=== PATIENT | female | born 1940 | race Caucasian/White ===

== ENCOUNTER 2016-04-20 08:06 | Inpatient (IN) | payer BC, OTHER ==
[2016-04-18 15:01] VITALS: BMI 29.0
[2016-04-20] VITALS (10 sets, daily range): BP systolic 111–141; BP diastolic 66–87; PULSE 52–87; TEMP 36.5–36.9; O2SAT 96–100; Ht 154.9 cm; Wt 71.8 kg
[~2016-04-20] VITALS: Ht 154.9 cm; Wt 71.8 kg
[~2016-04-20 08:06] MED LIST: AMLO5CAP2 PO; ASPCH81X PO; CETI10TA10 PO; CHOL1000 PO; CLINDAMYCIN 600 MG/54 ML D5W IV SCH; FERR50TA3 PO; GENTAMICIN INJ 80 MG in DEXTROSE 5% 100ML 100 ML IV SCH; HEPARIN SOD 5000 UNIT/0.5 ML CARP SQ SCH; HYDR25TA4 PO; LACTATED RINGER'S 1000ML 1,000 ML IV SCH; PRLSR20 PO; VITACAP26 PO; VITAMIN B12 SL
[2016-04-20] MEDS ORDERED: FENTANYL CITRATE INJ 50 MCG/1 ML 2 ML VIAL ONE ×3 (09:26→13:28)
[2016-04-20] MEDS ORDERED: MIDAZOLAM HCL 1 MG/ML 2ML VIAL ONE (09:26)
--- NOTE | 2016-04-20 10:13 | History & Physical Bridge Note ---
H&P Re-Evaluation Bridge Note: I have examined the patient, reviewed the History & Physical and in the interval since the performance of the History & Physical I have noted the following changes of clinical significance: No changes noted...family at bedside. rediscussed risks/options. questions answered. ok to proceed.
[2016-04-20] MEDS ORDERED: LIDOCAINE HCL 2% 2 ML VIAL (20MG/ML) ONE (11:05)
[2016-04-20] MEDS ORDERED: GLYCOPYRROLATE INJ 0.2 MG/ML VIAL ONE (11:05)
[2016-04-20] MEDS ORDERED: PROPOFOL IV EMULSION 10 MG/ML 20 ML VIAL IV ONE (11:05)
[2016-04-20] MEDS ORDERED: DEXAMETHASONE SOD INJ 4 MG/ML VIAL ONE (11:05)
[2016-04-20] MEDS ORDERED: NEOSTIGMINE METHYLSULFATE 5 MG/5 ML SYR ONE (11:05)
[2016-04-20] MEDS ORDERED: ROCURONIUM BROMIDE 10 MG/ML 5 ML VIAL ONE (11:05)
[2016-04-20] MEDS ORDERED: PHENYLEPHRINE 100MCG/ML 5ML SYR ONE (11:05)
[2016-04-20] MEDS ORDERED: ONDANSETRON INJ 2 MG/ML 2 ML VIAL ONE (11:05)
[2016-04-20] MEDS ORDERED: MoRPHine SULFATE PF 1 MG/ML 10 ML AMP/VIAL ONE (11:09)
[2016-04-20] MEDS ORDERED: MoRPHine SULFATE 4 MG/ML 1 ML CARP\\VIAL IV PRN (13:00)
[2016-04-20] MEDS ORDERED: OXYCODONE/ACETAMINOPHEN 5-325 TAB PO PRN (13:00)
[2016-04-20] MEDS ORDERED: ONDANSETRON INJ 2 MG/ML 2 ML VIAL IV PRN ×2 (13:00→13:30)
[2016-04-20] MEDS ORDERED: BUPIVACAINE/EPINEPHRINE 0.5% MPF 1:200,000 30 ML VIAL INJ ONE (13:03)
--- NOTE | 2016-04-20 13:13 | [facility] Operative Report ---
Operative Report Operative Date Apr 20, 2016. Pre-Operative Diagnosis Colon Adenocarcinoma Post-Operative Diagnosis same Procedure(s) Performed laparoscopic right hemicolectomy Surgeon Dr. Dony Hernandez Radiographer Angiogram Surgeon(s) Basilio Zhang PA-C and Dr. Skip Benítez Estimated Blood Loss 25 ml Findings normal anatomy. no evidence of metastatic disease. Specimens A. Terminal ilium, cecum, right colon Anesthesia GET Complication(s) None Disposition Recovery Room / PACU I attest to the content of the Intraoperative Record and any orders documented therein. Any exceptions are noted below.
[2016-04-20] MEDS ORDERED: FENTANYL CITRATE INJ 50 MCG/1 ML 2 ML VIAL IV PRN (13:30)
[2016-04-20] MEDS ORDERED: ATROPINE SULFATE 0.1 MG/ML 5ML SYR IV PRN (13:30)
[2016-04-20] MEDS ORDERED: MoRPHine SULFATE 10 MG/ML CARP/VIAL IV PRN (13:30)
[2016-04-20] MEDS ORDERED: EpHEDrine SULFATE INJ 50 MG/ML AMP IV PRN (13:30)
--- NOTE | 2016-04-20 13:52 | OPERATIVE REPORT ---
DATE OF OPERATION: 04/20/2016 PREOPERATIVE DIAGNOSIS: Adenocarcinoma of the cecum. POSTOPERATIVE DIAGNOSIS: Same with intra-abdominal adhesions. PROCEDURE: Laparoscopic right hemicolectomy and enterolysis. SURGEON: Dr. Hernandez. ASSISTANT PROFESSOR OF BUSINESS: Saulo Zhang PA-C. ESTIMATED BLOOD LOSS: 20 mL. COMPLICATIONS: No immediate. ANESTHESIA: General. The patient tolerated the procedure well. OPERATION AND FINDINGS: OPERATIVE NOTE: After informed consent was obtained, the patient was brought to the operating suite, placed in supine position. After successful intubation a Hughes catheter was placed. The abdomen was then sterilely prepped and draped in usual fashion. An infraumbilical incision was made with 11 blade scalpel and carried down through the soft tissue using electrocautery. The anterior rectus fascia was opened using electrocautery and two #0 Vicryl stay sutures were placed. Peritoneum was elevated with hemostats and incised under direct vision using a Metzenbaum scissor. A finger sweep was performed. A 12 mm trocar was inserted and the balloon cuff was inflated. We then inflated the abdomen to 18 mmHg. Laparoscope was inserted and the abdomen was examined 360 degrees. There was no evidence of any metastatic disease, hernias or other gross abnormality. We did see an abnormality on the cecum consistent with the known tumor. We then placed a suprapubic 5 mm port, a left lower quadrant 12 mm port. The patient was placed in reverse Trendelenburg position and airplaned to the left. There were some adhesions from her prior appendectomy to the abdominal wall. We took these down using the Harmonic scalpel. Once we had the adhesions down, we then began mobilizing the right colon along the avascular plane laterally. To make this easier I went ahead and transected the terminal ileum about 4 inches proximal to the cecum and I did this using a CHEY hdz cartridge. We then continued to use traction, counter traction, blunt dissection as well as small amounts of harmonic to come up along the lateral avascular plane. We continued up and around the hepatic flexure and whole way to the mid transverse colon. Once we had this fully mobilized, we then picked a spot along the right colon just proximal to the hepatic flexure. We made a window in the mesentery and then used the CHEY purple cartridge stapler to transect the distal end of the colon. After we did this, we then took down the mesocolon staying low to the base using the Harmonic scalpel. We had to do a little bit of further mobilizing of the transverse colon and hepatic flexure. Once we did this, we estimated a good site to deliver the colon so we could do an extracorporal anastomosis. We did place a 5 mm trocar to help grasp the specimen. We then extended the incision using a scalpel as well as electrocautery and opened up the fascia. We then pulled out the terminal ileum, cecum and portion of the right colon and passed it off to be sent to pathology. We then used towel clips to close the skin and reinsufflated the abdomen. I manipulate the small bowel as well as the proximal colon so we made sure that the mesentery were not twisted and that they were perfectly aligned. Once I did this, I then delivered the small bowel staple line as well as the colon staple line out of this right upper quadrant incision. We made a small enterotomy in each and performed a side to side anastomosis using a CHEY hdz cartridge stapler. We then used a TA 60 device to close the common enterotomy. 3-0 silk was used to oversew the staple lines as well as to place a crotch stitch. We then put the anastomosis which was nice and pink and viable with no evidence of leakage. We put this back into the abdomen. I then closed the fascial defect using 0 Vicryl in a running fashion. We then reinsufflated the abdomen. I looked around and the anastomosis was viable. There was no bleeding. I did use a 2-0 Vicryl with laparoscopic suturing technique to close the mesenteric defect. Final look around the abdomen showed no other gross abnormalities. Again, there was adequate hemostasis. I felt no need to leave a drain. We removed all the trocars and desufflated the abdomen. The fascia of the camera port was closed using 0 Vicryl in a [id number] fashion. All the wounds were irrigated and closed using 4-0 Monocryl. Marcaine was injected around them for postoperative analgesia and Op-Sites were used as dressings. The patient was awakened, extubated, and transferred to recovery in stable condition. I attest to the content of the Intraoperative Record and any orders documented therein. Any exceptio ns are noted below.
--- NOTE | 2016-04-20 14:00 | Anesthesiology Progress Note ---
Anesthesia Post Op Note Date & Time Apr 20, 2016 at 13:59 Vital Signs Pain Intensity: 5.0 Vital Signs Past 12 Hours Date Time Temp Pulse Resp B/P Pulse Ox O2 Delivery O2 Flow Rate FiO2 04/20/16 13:51 36.4 04/20/16 13:50 52 16 04/20/16 13:50 52 16 99 04/20/16 13:49 124/52 04/20/16 13:45 51 16 04/20/16 13:45 51 16 98 04/20/16 13:44 130/52 04/20/16 13:40 51 16 04/20/16 13:40 51 16 98 04/20/16 13:39 130/55 04/20/16 13:37 52 16 97 04/20/16 13:37 52 16 04/20/16 13:34 129/57 04/20/16 13:32 51 16 97 04/20/16 13:32 51 16 04/20/16 13:29 142/63 04/20/16 13:27 56 16 99 04/20/16 13:27 56 16 04/20/16 13:24 155/92 04/20/16 13:22 57 22 04/20/16 13:22 58 22 100 04/20/16 13:19 147/65 04/20/16 13:17 57 12 100 04/20/16 13:17 57 12 04/20/16 13:14 142/56 04/20/16 13:12 62 16 100 04/20/16 13:12 61 16 04/20/16 13:11 61 12 100 04/20/16 13:11 61 12 04/20/16 13:06 71 12 100 04/20/16 13:06 70 12 04/20/16 13:04 144/61 04/20/16 13:01 36.7 75 15 149/61 100 Mask 10 04/20/16 13:01 72 12 04/20/16 13:01 72 12 100 04/20/16 08:32 36.7 85 18 141/68 99 Room Air Notes Mental Status: alert / awake / arousable, participated in evaluation Pt Amnestic to Procedure: Yes Nausea / Vomiting: adequately controlled Pain: adequately controlled Airway Patency, RR, SpO2: stable & adequate BP & HR: stable & adequate Hydration State: stable & adequate Anesthetic Complications: no major complications apparent
[2016-04-20] MEDS ORDERED: MoRPHine SULFATE 2 MG/ML CARP IV PRN (16:15)
[2016-04-20] MEDS: LACTATED RINGER'S 1000ML 1,000 ML IV SCH ×2 (16:32→23:21)
--- NOTE | 2016-04-20 17:13 | CONSULTATION REPORT ---
DATE OF CONSULTATION: 04/20/2016 REASON FOR CONSULTATION: Medical management of hypertension in the perioperative period. HISTORY OF PRESENT ILLNESS: Ms. Lin is a 76-year-old female who had a screening colonoscopy for anemia 03/28/2016. At that time, she had a circumferential cecal mass which was found to be low grade adenocarcinoma. The patient was taken to the operating room today for resection and reanastomosis. She is doing well postoperatively, although having absent bowel sounds. PAST MEDICAL HISTORY: Hypertension, GERD, vitamin D deficiency, anemia and a previous appendectomy. MEDICATIONS: Aspirin 81 a day, vitamin D 1000 a day, hydrochlorothiazide 25 a day, iron 325 a day, Prilosec 20 a day, Lotrel 5/20 once a day, and Zyrtec 10 a day. MEDICATIONS IN HOSPITAL: Really have been pared down to the Lotrel and the Zyrtec. Her other medications are held. These will be given with a small sip of water. SOCIAL HISTORY: Does not smoke or drink, never has. FAMILY HISTORY: Positive for heart disease and hypertension. REVIEW OF SYSTEMS: Currently, she does have some abdominal pain. She is mildly nauseated. She feels bloated and distended. Otherwise, 10 systems were reviewed and are negative. PHYSICAL EXAMINATION: VITAL SIGNS: She is afebrile at 36.6, pulse 57, respiration rate 16, BP 123/66, O2 sat 100 on 2 liters. HEENT: PERRL, EOMI. NEUROLOGICALLY: She is awake, alert and appropriate and oriented x3. Cranial nerves II-XII are intact. Equal symmetrical strength and sensation in upper and lower extremities. HEART: Regular without murmurs, clicks, rubs or gallops. LUNGS: Clear without wheezes or crackles. Good air movement. ABDOMEN: With hypoactive bowel sounds. She has dressings in place over laparoscopic surgical sites. She is mildly tender. EXTREMITIES: Without cyanosis, clubbing or edema. SKIN: Otherwise without lesions, growths, bruises or bleeding, other than her abdominal wounds. LABORATORY DATA: Preoperative labs from 03/29/2016 include a hemoglobin and hematocrit of 10 and 31 and renal function also from the 7th with a BUN of 18 and creatinine 1.0. ASSESSMENT: A 76-year-old female here status post cecal tumor resection and reanastomosis. PLAN: The patient will continue her amlodipine and benazepril as ordered. This will be with a small sip of water. We will follow her anemia and renal function postoperatively. I agree that holding her hydrochlorothiazide would be warranted. The surgical team has placed her on intravenous Protonix and currently using mechanical means for DVT prevention.
[2016-04-20] MEDS: CLINDAMYCIN IV 600 MG in DEXTROSE 5% ADD-VANTAGE 50ML 50 ML IV SCH (18:43)
[2016-04-20] MEDS ORDERED: CLINDAMYCIN 600 MG/54 ML D5W IV SCH (19:00)
[2016-04-21] VITALS (7 sets, daily range): BP systolic 96–125; BP diastolic 51–67; PULSE 62–88; TEMP 37.2–37.6; O2SAT 93–95
[2016-04-21] MEDS: CLINDAMYCIN IV 600 MG in DEXTROSE 5% ADD-VANTAGE 50ML 50 ML IV SCH (03:18)
[2016-04-21 06:44] LABS: COMPLETE YES; HEMATOCRIT 27.1 % (37-47); IG% 0.2 %; LYMPH ABS # 0.88 K/uL (1.2-3.4); MEAN CELL VOLUME 89.4 fL (80-100); MEAN CORPUSCULAR HEMOGLOBIN 29.7 pg (25-34); MEAN CORPUSCULAR HGB CONC 33.2 g/dl (32-36); MEAN PLATELET VOLUME 10.8 fL (7.4-10.4); MONO % 12.8 %; PLATELET COUNT 202 K/uL (130-400); RED BLOOD COUNT 3.03 M/uL (4.2-5.4); WHITE BLOOD COUNT 9.76 K/uL (4.8-10.8)
[2016-04-21 07:15] LABS: BUN/CREATININE RATIO 16.5 (10-20); CALCIUM 8.4 mg/dl (8.5-10.1); CREATININE 0.96 mg/dl (0.60-1.20); POTASSIUM 4.3 mmol/L (3.5-5.1)
[2016-04-21] MEDS: LACTATED RINGER'S 1000ML 1,000 ML IV SCH (08:25)
[2016-04-21] MEDS: AMLODIPINE BESYLATE 5 MG TAB PO SCH (08:30)
[2016-04-21] MEDS: ENOXAPARIN 40 MG/0.4 ML SYR SQ SCH (08:30)
[2016-04-21] MEDS: BENAZEPRIL HCL 10 MG TAB PO SCH (08:30)
[2016-04-21] MEDS: CETIRIZINE HCL 10 MG TAB PO SCH (08:30)
[2016-04-21] MEDS ORDERED: NURSING VERBAL MED ORDER ONE (08:30)
--- NOTE | 2016-04-21 08:46 | Anesthesiology Progress Note ---
Anesthesia Post Op Note Date & Time Apr 21, 2016 at 08:45 Vital Signs Pain Intensity: 8.0 Vital Signs Past 12 Hours Date Time Temp Pulse Resp B/P Pulse Ox O2 Delivery O2 Flow Rate FiO2 04/21/16 07:33 37.2 77 16 125/67 93 Room Air 04/21/16 03:25 37.3 84 18 120/61 94 Room Air 04/20/16 23:10 Room Air 04/20/16 22:54 36.9 75 16 111/69 96 Room Air Notes Mental Status: alert / awake / arousable, participated in evaluation Pt Amnestic to Procedure: Yes Nausea / Vomiting: adequately controlled Pain: adequately controlled Airway Patency, RR, SpO2: stable & adequate BP & HR: stable & adequate Hydration State: stable & adequate Anesthetic Complications: no major complications apparent
--- NOTE | 2016-04-21 09:52 | Surgery Progress Note ---
Surgery Progress Note Date of Service Apr 21, 2016. Subjective Post OP Day: 1 + feeling well, + pain controlled, No flatus, No nausea Objective Vital Signs: Date Time Temp Pulse Resp B/P Pulse Ox O2 Delivery O2 Flow Rate FiO2 04/21/16 07:40 Room Air 04/21/16 07:33 37.2 77 16 125/67 93 Room Air 04/21/16 03:25 37.3 84 18 120/61 94 Room Air 04/20/16 23:10 Room Air 04/20/16 22:54 36.9 75 16 111/69 96 Room Air 04/20/16 20:06 36.9 20 126/72 98 Nasal Cannula 2.0 04/20/16 17:31 36.6 87 18 123/87 100 Nasal Cannula 2.0 04/20/16 16:45 98 Nasal Cannula 2.0 04/20/16 16:40 36.6 58 20 128/79 100 Nasal Cannula 2.0 04/20/16 15:30 36.6 57 16 123/66 100 Nasal Cannula 2.0 04/20/16 15:00 36.6 56 16 120/70 100 Nasal Cannula 3.0 04/20/16 14:30 96 Nasal Cannula 2.0 04/20/16 14:30 96 Nasal Cannula 2.0 04/20/16 14:29 36.5 52 16 126/71 100 2.0 04/20/16 14:04 134/54 04/20/16 14:02 51 15 99 04/20/16 14:02 51 15 04/20/16 13:59 133/56 04/20/16 13:57 54 16 04/20/16 13:57 51 16 99 04/20/16 13:56 51 16 04/20/16 13:56 51 16 99 04/20/16 13:54 129/51 04/20/16 13:51 52 16 04/20/16 13:51 52 16 99 04/20/16 13:51 36.4 04/20/16 13:50 52 16 04/20/16 13:50 52 16 99 04/20/16 13:49 124/52 04/20/16 13:45 51 16 04/20/16 13:45 51 16 98 04/20/16 13:44 130/52 04/20/16 13:40 51 16 04/20/16 13:40 51 16 98 04/20/16 13:39 130/55 04/20/16 13:37 52 16 97 04/20/16 13:37 52 16 04/20/16 13:34 129/57 04/20/16 13:32 51 16 97 04/20/16 13:32 51 16 04/20/16 13:29 142/63 04/20/16 13:27 56 16 99 04/20/16 13:27 56 16 04/20/16 13:24 155/92 04/20/16 13:22 57 22 04/20/16 13:22 58 22 100 04/20/16 13:19 147/65 04/20/16 13:17 57 12 100 04/20/16 13:17 57 12 04/20/16 13:14 142/56 04/20/16 13:12 62 16 100 04/20/16 13:12 61 16 04/20/16 13:11 61 12 100 04/20/16 13:11 61 12 04/20/16 13:06 71 12 100 04/20/16 13:06 70 12 04/20/16 13:04 144/61 04/20/16 13:01 36.7 75 15 149/61 100 Mask 10 04/20/16 13:01 72 12 04/20/16 13:01 72 12 100 Physical Exam: urine output (600 cc overnight) Abdomen: non distended, soft Incision(s): intact (dressing) Laboratory Results: Results Past 24 Hours Test 04/21/16 06:20 Range/Units White Blood Count 9.76 4.8-10.8 K/uL Red Blood Count 3.03 4.2-5.4 M/uL Hemoglobin 9.0 12.0-16.0 g/dL Hematocrit 27.1 37-47 % Mean Corpuscular Volume 89.4 80-100 fL Mean Corpuscular Hemoglobin 29.7 25-34 pg Mean Corpuscular Hemoglobin Concent 33.2 32-36 g/dl Platelet Count 202 130-400 K/uL Mean Platelet Volume 10.8 7.4-10.4 fL Neutrophils (%) (Auto) 78.0 % Lymphocytes (%) (Auto) 9.0 % Monocytes (%) (Auto) 12.8 % Eosinophils (%) (Auto) 0.0 % Basophils (%) (Auto) 0.0 % Neutrophils # (Auto) 7.61 1.4-6.5 K/uL Lymphocytes # (Auto) 0.88 1.2-3.4 K/uL Monocytes # (Auto) 1.25 0.11-0.59 K/uL Eosinophils # (Auto) 0.00 0-0.5 K/uL Basophils # (Auto) 0.00 0-0.2 K/uL RDW Standard Deviation 44.5 36.4-46.3 fL RDW Coefficient of Variation 13.5 11.5-14.5 % Immature Granulocyte % (Auto) 0.2 % Immature Granulocyte # (Auto) 0.02 0.00-0.02 K/uL Sodium Level 139 136-145 mmol/L Potassium Level 4.3 3.5-5.1 mmol/L Chloride Level 106 98-107 mmol/L Carbon Dioxide Level 24 21-32 mmol/L Anion Gap 9.0 3-11 mmol/L Blood Urea Nitrogen 16 7-18 mg/dl Creatinine 0.96 0.60-1.20 mg/dl Est Creatinine Clear Calc Drug Dose 46.6 ml/min Estimated GFR () 67.5 Estimated GFR (Non- 58.3 BUN/Creatinine Ratio 16.5 10-20 Random Glucose 96 70-99 mg/dl Calcium Level 8.4 8.5-10.1 mg/dl Assessment & Plan POD 1 laparoscopic right colectomy doing well post op d/c meza start on clears chronic anemia, preop Hgb 10, now 9.0 ambulate Lovenox started this AM
[2016-04-21] MEDS: D5W AND 1/2NSS + 20MEQ KCL 1,000 ML IV SCH ×2 (10:26→22:40)
[2016-04-21] MEDS ORDERED: PANTOprazole INJ 40 MG in SYRINGE 0 ML IV SCH (11:00)
[2016-04-21] MEDS: OXYCODONE HCL IR 5 MG TAB (IMMEDIATE RELEASE) PO PRN ×2 (11:08→20:14)
[2016-04-21] MEDS: PANTOprazole SOD 40 MG TAB PO SCH (11:26)
--- NOTE | 2016-04-21 13:01 | Progress Note ---
Subjective Subjective Date of Service: Apr 21, 2016. Pt evaluation today including: conversation w/ patient, physical exam, chart review, review of studies, review of inpatient medication list Problem List Medical Problems: (1) Left sided chest pain Status: Acute Review of Systems Constitutional: No fever Eyes: No worsening of vision ENT: No hearing loss Respiratory: No cough Cardiac: No chest pain Abdomen: No pain Musculoskeletal: No joint pain Heme: No abnormal bleeding/bruising Endo: No fatigue Physical Exam Vital Signs Vital Signs Past 24 Hours: Date Time Temp Pulse Resp B/P Pulse Ox O2 Delivery O2 Flow Rate FiO2 04/21/16 10:57 37.3 62 16 105/64 95 Room Air 04/21/16 07:40 Room Air 04/21/16 07:33 37.2 77 16 125/67 93 Room Air 04/21/16 03:25 37.3 84 18 120/61 94 Room Air 04/20/16 23:10 Room Air 04/20/16 22:54 36.9 75 16 111/69 96 Room Air 04/20/16 20:06 36.9 20 126/72 98 Nasal Cannula 2.0 04/20/16 17:31 36.6 87 18 123/87 100 Nasal Cannula 2.0 04/20/16 16:45 98 Nasal Cannula 2.0 04/20/16 16:40 36.6 58 20 128/79 100 Nasal Cannula 2.0 04/20/16 15:30 36.6 57 16 123/66 100 Nasal Cannula 2.0 04/20/16 15:00 36.6 56 16 120/70 100 Nasal Cannula 3.0 04/20/16 14:30 96 Nasal Cannula 2.0 04/20/16 14:30 96 Nasal Cannula 2.0 04/20/16 14:29 36.5 52 16 126/71 100 2.0 04/20/16 14:04 134/54 04/20/16 14:02 51 15 99 04/20/16 14:02 51 15 04/20/16 13:59 133/56 04/20/16 13:57 54 16 04/20/16 13:57 51 16 99 04/20/16 13:56 51 16 04/20/16 13:56 51 16 99 04/20/16 13:54 129/51 04/20/16 13:51 52 16 04/20/16 13:51 52 16 99 04/20/16 13:51 36.4 04/20/16 13:50 52 16 04/20/16 13:50 52 16 99 04/20/16 13:49 124/52 04/20/16 13:45 51 16 04/20/16 13:45 51 16 98 04/20/16 13:44 130/52 04/20/16 13:40 51 16 04/20/16 13:40 51 16 98 04/20/16 13:39 130/55 04/20/16 13:37 52 16 97 04/20/16 13:37 52 16 04/20/16 13:34 129/57 04/20/16 13:32 51 16 97 04/20/16 13:32 51 16 04/20/16 13:29 142/63 04/20/16 13:27 56 16 99 04/20/16 13:27 56 16 04/20/16 13:24 155/92 04/20/16 13:22 57 22 04/20/16 13:22 58 22 100 04/20/16 13:19 147/65 04/20/16 13:17 57 12 100 04/20/16 13:17 57 12 04/20/16 13:14 142/56 04/20/16 13:12 62 16 100 04/20/16 13:12 61 16 04/20/16 13:11 61 12 100 04/20/16 13:11 61 12 04/20/16 13:06 71 12 100 04/20/16 13:06 70 12 04/20/16 13:04 144/61 04/20/16 13:01 36.7 75 15 149/61 100 Mask 10 04/20/16 13:01 72 12 04/20/16 13:01 72 12 100 Physical Exam: General Appearance: WD/WN, no apparent distress Eyes: bilateral eyes normal inspection ENT: hearing grossly normal, pharynx normal Neck: supple, no JVD Respiratory/Chest: lungs clear, no respiratory distress Cardiovascular: regular rate, rhythm, no gallop Abdomen: normal bowel sounds, soft Extremities: no pedal edema, no calf tenderness Neurologic/Psychiatric: no motor/sensory deficits, normal mood/affect Skin: normal color, warm/dry Medications Medications: Current Inpatient Medications Medications (Trade) Dose Ordered Sig/Nanci Route Start Time Stop Time Status Last Admin Dose Admin Acetaminophen (Ofirmev Iv) 100 ml @ 400 mls/hr Q8H PRN IV 04/20/16 13:00 05/20/16 12:59 Morphine Sulfate (MoRPHine SULFATE INJ) 4 mg Q1H PRN IV 04/20/16 13:00 05/04/16 12:59 04/20/16 16:41 4 MG Ondansetron HCl (Zofran Inj) 4 mg Q6H PRN IV 04/20/16 13:00 05/20/16 12:59 Enoxaparin Sodium (Lovenox Inj) 40 mg Q24H SQ 04/21/16 08:00 05/21/16 07:59 04/21/16 08:30 40 MG Cetirizine HCl (zyrTEC TAB) 10 mg QAM PO 04/21/16 09:00 05/21/16 08:59 04/21/16 08:30 10 MG Amlodipine Besylate (Norvasc Tab) 5 mg QAM PO 04/21/16 09:00 05/21/16 08:59 04/21/16 08:30 5 MG Benazepril HCl (Lotensin Tab) 20 mg QAM PO 04/21/16 09:00 05/21/16 08:59 04/21/16 08:30 20 MG Morphine Sulfate (MoRPHine SULFATE INJ) 2 mg Q4H PRN IV 04/20/16 16:15 05/04/16 16:14 Oxycodone HCl 10 mg 10 mg Q6 PRN PO 04/20/16 17:00 05/04/16 16:59 04/21/16 11:08 10 MG Potassium Chloride/Dextrose/ Sod Cl (D5W And 1/2nss + 20meq KCl) 1,000 ml @ 80 mls/hr [id number] IV 04/21/16 10:30 05/21/16 09:59 04/21/16 10:26 80 MLS/HR Pantoprazole Sodium (Protonix Tab) 40 mg QAM PO 04/21/16 11:00 05/21/16 10:59 04/21/16 11:26 40 MG Laboratory Data Labs: Last 24 Hours Test 04/21/16 06:20 White Blood Count 9.76 K/uL Red Blood Count 3.03 M/uL Hemoglobin 9.0 g/dL Hematocrit 27.1 % Mean Corpuscular Volume 89.4 fL Mean Corpuscular Hemoglobin 29.7 pg Mean Corpuscular Hemoglobin Concent 33.2 g/dl Platelet Count 202 K/uL Mean Platelet Volume 10.8 fL Neutrophils (%) (Auto) 78.0 % Lymphocytes (%) (Auto) 9.0 % Monocytes (%) (Auto) 12.8 % Eosinophils (%) (Auto) 0.0 % Basophils (%) (Auto) 0.0 % Neutrophils # (Auto) 7.61 K/uL Lymphocytes # (Auto) 0.88 K/uL Monocytes # (Auto) 1.25 K/uL Eosinophils # (Auto) 0.00 K/uL Basophils # (Auto) 0.00 K/uL RDW Standard Deviation 44.5 fL RDW Coefficient of Variation 13.5 % Immature Granulocyte % (Auto) 0.2 % Immature Granulocyte # (Auto) 0.02 K/uL Sodium Level 139 mmol/L Potassium Level 4.3 mmol/L Chloride Level 106 mmol/L Carbon Dioxide Level 24 mmol/L Anion Gap 9.0 mmol/L Blood Urea Nitrogen 16 mg/dl Creatinine 0.96 mg/dl Est Creatinine Clear Calc Drug Dose 46.6 ml/min Estimated GFR () 67.5 Estimated GFR (Non- 58.3 BUN/Creatinine Ratio 16.5 Random Glucose 96 mg/dl Calcium Level 8.4 mg/dl Assessment and Plan A 76-year-old female here status post cecal tumor resection and reanastomosis. 1. Hx HTN, stable continue her amlodipine and benazepril as ordered. cont clears Lovenox Sq for DVT proph holding her hydrochlorothiazide would be warranted. intravenous Protonix pain mx as per surgical team 2, anemia:check cbc FULL Code
[2016-04-22] VITALS (8 sets, daily range): BP systolic 132–144; BP diastolic 61–74; PULSE 86–93; TEMP 37–38.2; O2SAT 93–95
[2016-04-22] MEDS: OXYCODONE HCL IR 5 MG TAB (IMMEDIATE RELEASE) PO PRN ×3 (02:36→14:25)
--- NOTE | 2016-04-22 07:23 | Surgery Progress Note ---
Surgery Progress Note Date of Service Apr 22, 2016. Subjective Post OP Day: 2 + diet (clears), + feeling well, + flatus, No bowel movement, No nausea, No vomiting Objective Vital Signs: Date Time Temp Pulse Resp B/P Pulse Ox O2 Delivery O2 Flow Rate FiO2 04/22/16 06:52 37.9 93 16 132/74 93 Room Air 04/21/16 23:35 Room Air 04/21/16 22:50 37.6 88 16 118/51 93 Room Air 04/21/16 16:13 124/67 04/21/16 15:30 37.4 74 16 96/57 94 Room Air 04/21/16 15:15 94 Room Air 04/21/16 10:57 37.3 62 16 105/64 95 Room Air 04/21/16 07:40 Room Air 04/21/16 07:33 37.2 77 16 125/67 93 Room Air General Appearance: WD/WN, no apparent distress Head: normocephalic, atraumatic Neck: supple, trachea midline Respiratory/Chest: lungs clear Cardiovascular: regular rate, rhythm Abdomen: normal bowel sounds, non distended, soft, + tenderness (mild) Incision(s): clean, dry, intact Extremities: non-tender, no pedal edema Laboratory Results: Results Past 24 Hours Test 04/22/16 04:44 Range/Units Assessment & Plan s/p lap right colon resection -con't clears -ambulate -IVF; not taking alot po yet -incisions look good -await bowel function
[2016-04-22 07:38] LABS: BASO % 0.1 %; BASO ABS # 0.01 K/uL (0-0.2); COMPLETE YES; EOS % 0.7 %; HEMATOCRIT 30.8 % (37-47); IG% 0.3 %; LYMPH % 19.5 %; LYMPH ABS # 2.23 K/uL (1.2-3.4); MEAN CELL VOLUME 91.1 fL (80-100); MEAN CORPUSCULAR HEMOGLOBIN 28.7 pg (25-34); MEAN CORPUSCULAR HGB CONC 31.5 g/dl (32-36); MEAN PLATELET VOLUME 11.1 fL (7.4-10.4); NEUT % 66.4 %; PLATELET COUNT 270 K/uL (130-400); RED BLOOD COUNT 3.38 M/uL (4.2-5.4); WHITE BLOOD COUNT 11.46 K/uL (4.8-10.8)
[2016-04-22] MEDS: PANTOprazole SOD 40 MG TAB PO SCH (07:46)
[2016-04-22] MEDS: CETIRIZINE HCL 10 MG TAB PO SCH (07:46)
[2016-04-22] MEDS: ENOXAPARIN 40 MG/0.4 ML SYR SQ SCH (07:47)
[2016-04-22] MEDS: BENAZEPRIL HCL 10 MG TAB PO SCH (07:47)
[2016-04-22] MEDS: AMLODIPINE BESYLATE 5 MG TAB PO SCH (07:47)
[2016-04-22] MEDS: ACETAMINOPHEN IV 100 ML IV PRN ×2 (08:17→21:13)
[2016-04-22 08:29] LABS: BUN/CREATININE RATIO 9.5 (10-20); CALCIUM 8.6 mg/dl (8.5-10.1); CREATININE 1.1 mg/dl (0.60-1.20)
--- NOTE | 2016-04-22 09:48 | Hospitalist Progress Note ---
Hospitalist Progress Note Date of Service Apr 22, 2016. (Lety Upton ., RELL) 04/22/16 agree with PA note (Pradeep Nails MD) Subjective Pt evaluation today including: conversation w/ patient, physical exam, chart review, lab review, review of inpatient medication list Voiding: no voiding problems, no incontinence Patient states she is feeling well. Pain is well controlled. She is tolerating clears well. She denies any flatus or BM postop. Patient denies any fever, chills, sweats, lightheadedness, dizziness, vision changes, CP, palpitations, edema, SOB, wheezing, cough, nausea, vomiting, diarrhea, urinary symptoms, melena, numbness/tingling, weakness, muscle/joint pain, anxiety/depression, active bleeding, or new skin discoloration/changes. (Lety Upton, RELL) Pt evaluation today including: conversation w/ patient, physical exam, chart review, review of studies, review of inpatient medication list Constitutional: No fever Eyes: No worsening of vision ENT: No hearing loss Respiratory: No cough Cardiovascular: No chest pain Abdomen: No pain Female : No dysuria Neurologic: No memory loss Psychiatric: No depression symptoms Endo: No fatigue (Pradeep Nails MD) Medications Current Inpatient Medications Medications (Trade) Dose Ordered Sig/Nanci Route Start Time Stop Time Status Last Admin Dose Admin Acetaminophen (Ofirmev Iv) 100 ml @ 400 mls/hr Q8H PRN IV 04/20/16 13:00 05/20/16 12:59 04/22/16 08:17 400 MLS/HR Morphine Sulfate (MoRPHine SULFATE INJ) 4 mg Q1H PRN IV 04/20/16 13:00 05/04/16 12:59 04/20/16 16:41 4 MG Ondansetron HCl (Zofran Inj) 4 mg Q6H PRN IV 04/20/16 13:00 05/20/16 12:59 Enoxaparin Sodium (Lovenox Inj) 40 mg Q24H SQ 04/21/16 08:00 05/21/16 07:59 04/22/16 07:47 40 MG Cetirizine HCl (zyrTEC TAB) 10 mg QAM PO 04/21/16 09:00 05/21/16 08:59 04/22/16 07:46 10 MG Amlodipine Besylate (Norvasc Tab) 5 mg QAM PO 04/21/16 09:00 05/21/16 08:59 04/22/16 07:47 5 MG Benazepril HCl (Lotensin Tab) 20 mg QAM PO 04/21/16 09:00 05/21/16 08:59 04/22/16 07:47 20 MG Morphine Sulfate (MoRPHine SULFATE INJ) 2 mg Q4H PRN IV 04/20/16 16:15 05/04/16 16:14 Oxycodone HCl 10 mg 10 mg Q6 PRN PO 04/20/16 17:00 05/04/16 16:59 04/22/16 08:16 10 MG Potassium Chloride/Dextrose/ Sod Cl (D5W And 1/2nss + 20meq KCl) 1,000 ml @ 80 mls/hr [id number] IV 04/21/16 10:30 05/21/16 09:59 04/21/16 22:40 80 MLS/HR Pantoprazole Sodium (Protonix Tab) 40 mg QAM PO 04/21/16 11:00 05/21/16 10:59 04/22/16 07:46 40 MG (Lety Upton, ROWENA-C) Objective Vital Signs Date Time Temp Pulse Resp B/P Pulse Ox O2 Delivery O2 Flow Rate FiO2 04/22/16 08:30 Room Air 04/22/16 06:52 37.9 93 16 132/74 93 Room Air 04/21/16 23:35 Room Air 04/21/16 22:50 37.6 88 16 118/51 93 Room Air 04/21/16 16:13 124/67 04/21/16 15:30 37.4 74 16 96/57 94 Room Air 04/21/16 15:15 94 Room Air 04/21/16 10:57 37.3 62 16 105/64 95 Room Air (Lety Upton PA-C) Physical Exam General Appearance: no apparent distress Eyes: normal inspection, PERRL ENT: hearing grossly normal Neck: supple Respiratory/Chest: lungs clear, no respiratory distress, no accessory muscle use Cardiovascular: regular rate, rhythm, no edema Abdomen: normal bowel sounds, soft, + pertinent finding (Steri strips over incisions sites, without obvious erythema or drainage ) Extremities: no pedal edema, no calf tenderness Neurologic/Psychiatric: alert, normal mood/affect, oriented x 3 Skin: normal color, warm/dry, no rash (Lety Upton PA-C) General Appearance: WD/WN, no apparent distress Eyes: normal inspection, EOMI ENT: hearing grossly normal, pharynx normal Neck: supple, no JVD Respiratory/Chest: chest non-tender, normal breath sounds Cardiovascular: regular rate, rhythm, no gallop Abdomen: normal bowel sounds, no pulsatile mass Extremities: non-tender, normal inspection Neurologic/Psychiatric: no motor/sensory deficits Skin: normal color (Pradeep Nails MD) Laboratory Results Last 24 Hours Test 04/22/16 07:15 White Blood Count 11.46 K/uL Red Blood Count 3.38 M/uL Hemoglobin 9.7 g/dL Hematocrit 30.8 % Mean Corpuscular Volume 91.1 fL Mean Corpuscular Hemoglobin 28.7 pg Mean Corpuscular Hemoglobin Concent 31.5 g/dl Platelet Count 270 K/uL Mean Platelet Volume 11.1 fL Neutrophils (%) (Auto) 66.4 % Lymphocytes (%) (Auto) 19.5 % Monocytes (%) (Auto) 13.0 % Eosinophils (%) (Auto) 0.7 % Basophils (%) (Auto) 0.1 % Neutrophils # (Auto) 7.62 K/uL Lymphocytes # (Auto) 2.23 K/uL Monocytes # (Auto) 1.49 K/uL Eosinophils # (Auto) 0.08 K/uL Basophils # (Auto) 0.01 K/uL RDW Standard Deviation 45.5 fL RDW Coefficient of Variation 13.6 % Immature Granulocyte % (Auto) 0.3 % Immature Granulocyte # (Auto) 0.03 K/uL Sodium Level 138 mmol/L Potassium Level 4.0 mmol/L Chloride Level 105 mmol/L Carbon Dioxide Level 24 mmol/L Anion Gap 9.0 mmol/L Blood Urea Nitrogen 11 mg/dl Creatinine 1.10 mg/dl Est Creatinine Clear Calc Drug Dose 40.7 ml/min Estimated GFR () 57.3 Estimated GFR (Non- 49.4 BUN/Creatinine Ratio 9.5 Random Glucose 99 mg/dl Calcium Level 8.6 mg/dl (Murarik, Lety ., PA-C) Assessment and Plan A 76-year-old female here status post cecal tumor resection and reanastomosis. Cecal tumor resection and reanastomosis: -Pain management as per surgical team -IV Protonix switched to oral Protonix per primary team (04/22) -Clears diet, tolerating well HTN: -Continue Amlodipine 5 mg PO QAM -Continue Benazepril 20 mg PO QAM -Hold HCTZ Anemia: -Stable -Follow CBC DVT prophylaxis: -Lovenox 40 mg SQ q24 hrs Code Status: -LEVEL I, FULL Dispo: -Discharge as per primary team (Lety Upton PA-C) A 76-year-old female here status post cecal tumor resection and reanastomosis. Cecal tumor resection and reanastomosis: cont PO Protonix per primary team (04/22) cont Clears diet, tolerating well cont pain management HTN: Continue Amlodipine 5 mg PO QAM Continue Benazepril 20 mg PO QAM Hold HCTZ Anemia: Stable Follow CBC DVT prophylaxis: Lovenox 40 mg SQ q24 hrs Code Status: FULL Dispo: Discharge as per primary team (Pradeep Nails MD)
[2016-04-22] MEDS: D5W AND 1/2NSS + 20MEQ KCL 1,000 ML IV SCH ×2 (10:54→23:51)
[2016-04-23 02:50] VITALS: TEMP 36.9
[2016-04-23] MEDS: OXYCODONE HCL IR 5 MG TAB (IMMEDIATE RELEASE) PO PRN ×3 (05:59→21:18)
[2016-04-23 06:55] LABS: BASO % 0.3 %; BASO ABS # 0.02 K/uL (0-0.2); EOS % 4.2 %; HEMATOCRIT 28.1 % (37-47); IG% 0.3 %; LYMPH % 18.5 %; LYMPH ABS # 1.29 K/uL (1.2-3.4); MEAN CELL VOLUME 91.8 fL (80-100); MEAN CORPUSCULAR HEMOGLOBIN 29.1 pg (25-34); MEAN CORPUSCULAR HGB CONC 31.7 g/dl (32-36); MEAN PLATELET VOLUME 11.1 fL (7.4-10.4); MONO % 12.8 %; NEUT % 63.9 %; PLATELET COUNT 168 K/uL (130-400); RED BLOOD COUNT 3.06 M/uL (4.2-5.4); WHITE BLOOD COUNT 6.98 K/uL (4.8-10.8)
[2016-04-23 07:23] LABS: COMPLETE YES
[2016-04-23 07:25] LABS: CALCIUM 8.5 mg/dl (8.5-10.1); CREATININE 0.91 mg/dl (0.60-1.20)
[2016-04-23 07:55] VITALS: BP 131/66; PULSE 93; TEMP 37.3; O2SAT 95
--- NOTE | 2016-04-23 08:24 | Surgery Progress Note ---
Surgery Progress Note Date of Service Apr 23, 2016. Subjective Post OP Day: 3 + diet (clears), + feeling well, + flatus, No bowel movement, No nausea, No vomiting Objective Vital Signs: Date Time Temp Pulse Resp B/P Pulse Ox O2 Delivery O2 Flow Rate FiO2 04/23/16 07:55 37.3 93 21 131/66 95 Room Air 04/23/16 02:50 36.9 04/22/16 23:55 Room Air 04/22/16 23:30 37.0 93 18 144/64 94 Room Air 04/22/16 22:42 37.7 04/22/16 21:49 37.7 04/22/16 21:07 38.2 04/22/16 16:15 Room Air 04/22/16 15:03 37.2 86 18 137/61 95 Room Air 04/22/16 13:53 37.3 04/22/16 09:43 37.6 04/22/16 08:30 Room Air General Appearance: WD/WN, no apparent distress Head: normocephalic, atraumatic Neck: supple, trachea midline Respiratory/Chest: lungs clear Cardiovascular: regular rate, rhythm Abdomen: normal bowel sounds, soft, + distended (mild), + tenderness (mild) Incision(s): clean, dry, intact Extremities: non-tender, no pedal edema Laboratory Results: Results Past 24 Hours Test 04/23/16 06:24 Range/Units White Blood Count 6.98 4.8-10.8 K/uL Red Blood Count 3.06 4.2-5.4 M/uL Hemoglobin 8.9 12.0-16.0 g/dL Hematocrit 28.1 37-47 % Mean Corpuscular Volume 91.8 80-100 fL Mean Corpuscular Hemoglobin 29.1 25-34 pg Mean Corpuscular Hemoglobin Concent 31.7 32-36 g/dl Platelet Count 168 130-400 K/uL Mean Platelet Volume 11.1 7.4-10.4 fL Neutrophils (%) (Auto) 63.9 % Lymphocytes (%) (Auto) 18.5 % Monocytes (%) (Auto) 12.8 % Eosinophils (%) (Auto) 4.2 % Basophils (%) (Auto) 0.3 % Neutrophils # (Auto) 4.47 1.4-6.5 K/uL Lymphocytes # (Auto) 1.29 1.2-3.4 K/uL Monocytes # (Auto) 0.89 0.11-0.59 K/uL Eosinophils # (Auto) 0.29 0-0.5 K/uL Basophils # (Auto) 0.02 0-0.2 K/uL RDW Standard Deviation 44.9 36.4-46.3 fL RDW Coefficient of Variation 13.3 11.5-14.5 % Immature Granulocyte % (Auto) 0.3 % Immature Granulocyte # (Auto) 0.02 0.00-0.02 K/uL Red Blood Cell Morphology Unremarkable Sodium Level 142 136-145 mmol/L Potassium Level 4.0 3.5-5.1 mmol/L Chloride Level 109 98-107 mmol/L Carbon Dioxide Level 25 21-32 mmol/L Anion Gap 8.0 3-11 mmol/L Blood Urea Nitrogen 7 7-18 mg/dl Creatinine 0.91 0.60-1.20 mg/dl Est Creatinine Clear Calc Drug Dose 49.2 ml/min Estimated GFR () 72.0 Estimated GFR (Non- 62.2 BUN/Creatinine Ratio 8.0 10-20 Random Glucose 92 70-99 mg/dl Calcium Level 8.5 8.5-10.1 mg/dl Assessment & Plan s/p lap right colon resection -fulls -ambulate -decrease IVF -incisions look good -passing flatus
[2016-04-23] MEDS: ENOXAPARIN 40 MG/0.4 ML SYR SQ SCH (09:09)
[2016-04-23] MEDS: BENAZEPRIL HCL 10 MG TAB PO SCH (09:10)
[2016-04-23] MEDS: AMLODIPINE BESYLATE 5 MG TAB PO SCH (09:10)
[2016-04-23] MEDS: PANTOprazole SOD 40 MG TAB PO SCH (09:11)
[2016-04-23] MEDS: CETIRIZINE HCL 10 MG TAB PO SCH (09:11)
[2016-04-23] MEDS: ACETAMINOPHEN IV 100 ML IV PRN (09:19)
[2016-04-23] MEDS: D5W AND 1/2NSS + 20MEQ KCL 1,000 ML IV SCH (10:34)
[2016-04-23] MEDS ORDERED: NURSING VERBAL MED ORDER ONE (11:00)
--- NOTE | 2016-04-23 12:38 | Progress Note ---
Subjective Subjective Date of Service: Apr 23, 2016. Pt evaluation today including: conversation w/ patient, physical exam, chart review, review of studies, review of inpatient medication list Notes: had bm Problem List Medical Problems: (1) Left sided chest pain Status: Acute Review of Systems Constitutional: No fever, No weight loss ENT: No hearing loss Respiratory: No cough Cardiac: No chest pain Abdomen: No pain Female : No dysuria Neurologic: No memory loss Psychiatric: No depression symptoms Physical Exam Vital Signs Vital Signs Past 24 Hours: Date Time Temp Pulse Resp B/P Pulse Ox O2 Delivery O2 Flow Rate FiO2 04/23/16 09:00 Room Air 04/23/16 07:55 37.3 93 21 131/66 95 Room Air 04/23/16 02:50 36.9 04/22/16 23:55 Room Air 04/22/16 23:30 37.0 93 18 144/64 94 Room Air 04/22/16 22:42 37.7 04/22/16 21:49 37.7 04/22/16 21:07 38.2 04/22/16 16:15 Room Air 04/22/16 15:03 37.2 86 18 137/61 95 Room Air 04/22/16 13:53 37.3 Physical Exam: General Appearance: WD/WN, no apparent distress Eyes: bilateral eyes normal inspection ENT: hearing grossly normal, pharynx normal Neck: supple, no JVD Respiratory/Chest: lungs clear, normal breath sounds Cardiovascular: no edema, no gallop Abdomen: soft, no pulsatile mass, + pertinent finding Extremities: non-tender, no pedal edema Neurologic/Psychiatric: alert, oriented x 3 Skin: normal color Medications Medications: Current Inpatient Medications Medications (Trade) Dose Ordered Sig/Nanci Route Start Time Stop Time Status Last Admin Dose Admin Acetaminophen (Ofirmev Iv) 100 ml @ 400 mls/hr Q8H PRN IV 04/20/16 13:00 05/20/16 12:59 04/23/16 09:19 400 MLS/HR Morphine Sulfate (MoRPHine SULFATE INJ) 4 mg Q1H PRN IV 04/20/16 13:00 05/04/16 12:59 04/20/16 16:41 4 MG Ondansetron HCl (Zofran Inj) 4 mg Q6H PRN IV 04/20/16 13:00 05/20/16 12:59 Enoxaparin Sodium (Lovenox Inj) 40 mg Q24H SQ 04/21/16 08:00 05/21/16 07:59 04/23/16 09:09 40 MG Cetirizine HCl (zyrTEC TAB) 10 mg QAM PO 04/21/16 09:00 05/21/16 08:59 04/23/16 09:11 10 MG Amlodipine Besylate (Norvasc Tab) 5 mg QAM PO 04/21/16 09:00 05/21/16 08:59 04/23/16 09:10 5 MG Benazepril HCl (Lotensin Tab) 20 mg QAM PO 04/21/16 09:00 05/21/16 08:59 04/23/16 09:10 20 MG Morphine Sulfate (MoRPHine SULFATE INJ) 2 mg Q4H PRN IV 04/20/16 16:15 05/04/16 16:14 Oxycodone HCl 10 mg 10 mg Q6 PRN PO 04/20/16 17:00 05/04/16 16:59 04/23/16 05:59 5 MG Potassium Chloride/Dextrose/ Sod Cl (D5W And 1/2nss + 20meq KCl) 1,000 ml @ 50 mls/hr Q20H IV 04/21/16 10:30 05/23/16 10:29 04/23/16 10:34 50 MLS/HR Pantoprazole Sodium (Protonix Tab) 40 mg QAM PO 04/21/16 11:00 05/21/16 10:59 04/23/16 09:11 40 MG Laboratory Data Labs: Last 24 Hours Test 04/23/16 06:24 White Blood Count 6.98 K/uL Red Blood Count 3.06 M/uL Hemoglobin 8.9 g/dL Hematocrit 28.1 % Mean Corpuscular Volume 91.8 fL Mean Corpuscular Hemoglobin 29.1 pg Mean Corpuscular Hemoglobin Concent 31.7 g/dl Platelet Count 168 K/uL Mean Platelet Volume 11.1 fL Neutrophils (%) (Auto) 63.9 % Lymphocytes (%) (Auto) 18.5 % Monocytes (%) (Auto) 12.8 % Eosinophils (%) (Auto) 4.2 % Basophils (%) (Auto) 0.3 % Neutrophils # (Auto) 4.47 K/uL Lymphocytes # (Auto) 1.29 K/uL Monocytes # (Auto) 0.89 K/uL Eosinophils # (Auto) 0.29 K/uL Basophils # (Auto) 0.02 K/uL RDW Standard Deviation 44.9 fL RDW Coefficient of Variation 13.3 % Immature Granulocyte % (Auto) 0.3 % Immature Granulocyte # (Auto) 0.02 K/uL Red Blood Cell Morphology Unremarkable Sodium Level 142 mmol/L Potassium Level 4.0 mmol/L Chloride Level 109 mmol/L Carbon Dioxide Level 25 mmol/L Anion Gap 8.0 mmol/L Blood Urea Nitrogen 7 mg/dl Creatinine 0.91 mg/dl Est Creatinine Clear Calc Drug Dose 49.2 ml/min Estimated GFR () 72.0 Estimated GFR (Non- 62.2 BUN/Creatinine Ratio 8.0 Random Glucose 92 mg/dl Calcium Level 8.5 mg/dl Assessment and Plan A 76-year-old female here status post cecal tumor resection and reanastomosis. Cecal tumor resection and reanastomosis: cont PO Protonix per primary team (04/22) advance diet as tolerated, tolerating well cont pain management HTN: Continue Amlodipine 5 mg PO QAM Continue Benazepril 20 mg PO QAM Hold HCTZ Anemia: Stable Follow CBC DVT prophylaxis: Lovenox 40 mg SQ q24 hrs Code Status: FULL Dispo: Discharge as per primary team
[2016-04-23 15:22] VITALS: BP 136/62; PULSE 86; TEMP 37; O2SAT 97
[2016-04-23 23:05] VITALS: BP 131/67; PULSE 91; TEMP 37.8; O2SAT 95
[2016-04-23 23:55] VITALS: TEMP 37.5
[2016-04-23] MEDS: ACETAMINOPHEN 500 MG TAB PO PRN (23:59)
[2016-04-24 04:46] VITALS: TEMP 37.2
[2016-04-24] MEDS: D5W AND 1/2NSS + 20MEQ KCL 1,000 ML IV SCH ×2 (05:40→23:34)
--- NOTE | 2016-04-24 06:52 | Surgery Progress Note ---
Surgery Progress Note Date of Service Apr 24, 2016. Subjective Post OP Day: 4 + ambulating, + bowel movement, + diet (fulls), + feeling well, + flatus, No complaints, No nausea, No vomiting Objective Vital Signs: Date Time Temp Pulse Resp B/P Pulse Ox O2 Delivery O2 Flow Rate FiO2 04/24/16 04:46 37.2 04/23/16 23:55 37.5 04/23/16 23:45 Room Air 04/23/16 23:05 37.8 91 16 131/67 95 Room Air 04/23/16 20:00 Room Air 04/23/16 15:40 Room Air 04/23/16 15:22 37.0 86 18 136/62 97 Room Air 04/23/16 09:00 Room Air 04/23/16 07:55 37.3 93 21 131/66 95 Room Air General Appearance: WD/WN, no apparent distress Head: normocephalic, atraumatic Neck: supple, trachea midline Respiratory/Chest: lungs clear Cardiovascular: regular rate, rhythm Abdomen: normal bowel sounds, non tender, non distended, soft Incision(s): clean, dry, intact Extremities: non-tender, no pedal edema Assessment & Plan s/p lap right colon resection -advance diet -ambulate -incisions look good
[2016-04-24 07:04] VITALS: BP 130/66; PULSE 72; TEMP 36.8; O2SAT 98
[2016-04-24] MEDS: ENOXAPARIN 40 MG/0.4 ML SYR SQ SCH (08:24)
[2016-04-24] MEDS: PANTOprazole SOD 40 MG TAB PO SCH (08:25)
[2016-04-24] MEDS: AMLODIPINE BESYLATE 5 MG TAB PO SCH (08:25)
[2016-04-24] MEDS: BENAZEPRIL HCL 10 MG TAB PO SCH (08:25)
[2016-04-24] MEDS: CETIRIZINE HCL 10 MG TAB PO SCH (08:27)
[2016-04-24] MEDS: OXYCODONE HCL IR 5 MG TAB (IMMEDIATE RELEASE) PO PRN ×2 (13:20→20:38)
--- NOTE | 2016-04-24 13:45 | Progress Note ---
Subjective Subjective Date of Service: Apr 24, 2016. Pt evaluation today including: conversation w/ patient, physical exam, chart review, review of studies, review of inpatient medication list Notes: tolerates diet, moves BMs Problem List Medical Problems: (1) Left sided chest pain Status: Acute Review of Systems Constitutional: No fever ENT: No hearing loss Cardiac: No chest pain Abdomen: No pain Female : No dysuria Neurologic: No memory loss Psychiatric: No depression symptoms Heme: No abnormal bleeding/bruising Endo: No fatigue Physical Exam Vital Signs Vital Signs Past 24 Hours: Date Time Temp Pulse Resp B/P Pulse Ox O2 Delivery O2 Flow Rate FiO2 04/24/16 07:34 Room Air 04/24/16 07:04 36.8 72 17 130/66 98 Room Air 04/24/16 04:46 37.2 04/23/16 23:55 37.5 04/23/16 23:45 Room Air 04/23/16 23:05 37.8 91 16 131/67 95 Room Air 04/23/16 20:00 Room Air 04/23/16 15:40 Room Air 04/23/16 15:22 37.0 86 18 136/62 97 Room Air Physical Exam: General Appearance: WD/WN, no apparent distress Eyes: bilateral eyes normal inspection ENT: hearing grossly normal, pharynx normal Neck: supple, no JVD Respiratory/Chest: chest non-tender, normal breath sounds Cardiovascular: regular rate, rhythm, no gallop Abdomen: non tender, soft Extremities: normal range of motion, no pedal edema Neurologic/Psychiatric: alert, normal mood/affect Skin: normal color Medications Medications: Current Inpatient Medications Medications (Trade) Dose Ordered Sig/Nanci Route Start Time Stop Time Status Last Admin Dose Admin Morphine Sulfate (MoRPHine SULFATE INJ) 4 mg Q1H PRN IV 04/20/16 13:00 05/04/16 12:59 04/20/16 16:41 4 MG Ondansetron HCl (Zofran Inj) 4 mg Q6H PRN IV 04/20/16 13:00 05/20/16 12:59 Enoxaparin Sodium (Lovenox Inj) 40 mg Q24H SQ 04/21/16 08:00 05/21/16 07:59 04/24/16 08:24 40 MG Cetirizine HCl (zyrTEC TAB) 10 mg QAM PO 04/21/16 09:00 05/21/16 08:59 04/24/16 08:27 10 MG Amlodipine Besylate (Norvasc Tab) 5 mg QAM PO 04/21/16 09:00 05/21/16 08:59 04/24/16 08:25 5 MG Benazepril HCl (Lotensin Tab) 20 mg QAM PO 04/21/16 09:00 05/21/16 08:59 04/24/16 08:25 20 MG Morphine Sulfate (MoRPHine SULFATE INJ) 2 mg Q4H PRN IV 04/20/16 16:15 05/04/16 16:14 Oxycodone HCl 10 mg 10 mg Q6 PRN PO 04/20/16 17:00 05/04/16 16:59 04/24/16 13:20 5 MG Potassium Chloride/Dextrose/ Sod Cl (D5W And 1/2nss + 20meq KCl) 1,000 ml @ 50 mls/hr Q20H IV 04/21/16 10:30 05/23/16 10:29 04/24/16 05:40 50 MLS/HR Pantoprazole Sodium (Protonix Tab) 40 mg QAM PO 04/21/16 11:00 05/21/16 10:59 04/24/16 08:25 40 MG Acetaminophen (Tylenol Tab) 1,000 mg Q8H PRN PO 04/23/16 13:30 05/23/16 13:29 04/23/16 23:59 1,000 MG Assessment and Plan A 76-year-old female here status post cecal tumor resection and reanastomosis. Cecal tumor resection and reanastomosis: cont PO Protonix per primary team (04/22) advance diet as tolerated, tolerating well regular diet cont pain management HTN: Continue Amlodipine 5 mg PO QAM Continue Benazepril 20 mg PO QAM Hold HCTZ Anemia: Stable Follow CBC DVT prophylaxis: Lovenox 40 mg SQ q24 hrs Code Status: FULL Dispo: Discharge as per primary team, hopefully tomorrow
[2016-04-24 15:41] VITALS: BP 156/70; PULSE 100; TEMP 38; O2SAT 95
[2016-04-24] MEDS: ACETAMINOPHEN 500 MG TAB PO PRN (16:11)
[2016-04-24 17:54] VITALS: TEMP 37.6
[2016-04-24 23:35] VITALS: BP 139/69; PULSE 87; TEMP 36.8; O2SAT 97
[2016-04-25] MEDS: D5W AND 1/2NSS + 20MEQ KCL 1,000 ML IV SCH (05:24)
[2016-04-25 07:30] VITALS: BP 125/70; PULSE 85; TEMP 37.5; O2SAT 98
--- NOTE | 2016-04-25 08:01 | Surgery Progress Note ---
Surgery Progress Note Date of Service Apr 25, 2016. Subjective Post OP Day: 5 + bowel movement, + feeling well sarah diet. pain controlled. no c/o's. Objective Vital Signs: Date Time Temp Pulse Resp B/P Pulse Ox O2 Delivery O2 Flow Rate FiO2 04/25/16 07:30 37.5 85 16 125/70 98 Room Air 04/25/16 07:20 Room Air 04/24/16 23:35 36.8 87 16 139/69 97 Room Air 04/24/16 23:26 Room Air 04/24/16 17:54 37.6 04/24/16 16:00 Room Air 04/24/16 15:41 38.0 100 18 156/70 95 Room Air General Appearance: no apparent distress Head: normocephalic Neck: supple Abdomen: normal bowel sounds, non tender, soft Incision(s): clean, dry, intact, no erythema Extremities: non-tender, no pedal edema Assessment & Plan POD #5 no issues sarah diet pain controlled. ok for d/c instructions given
--- NOTE | 2016-04-25 08:05 | Discharge Instructions ---
Discharge Instructions Admission Reason for Admission: Cecal Neoplasm Discharge Discharge Diagnosis / Problem: colon cancer Discharge Goals Goal(s): Improve function, Increase independence Activity Recommendations Activity Limitations: as noted below Lifting Limitations: no more than 10 pounds Exercise/Sports Limitations: gradually increase as tolerated Shower/Bathe: no limitations . Instructions / Follow-Up Instructions / Follow-Up follow up with Dr. Hernandez in 1 week Current Hospital Diet Patient's current hospital diet: Regular Diet Discharge Diet Recommended Diet: Regular Diet Procedures Procedures Performed: Right Laparoscopic Hemicolectomy Pending Studies Studies pending at discharge: yes List of pending studies: path report Medical Emergencies . Who to Call and When: Medical Emergencies: If at any time you feel your situation is an emergency, please call 911 immediately. . Non-Emergent Contact Non-Emergency issues call your: Primary Care Provider, Surgeon Call Non-Emergent contact if: temperature is above 101, your pain is not controlled, your pain is worsening, wound has increased drainage, wound has increased redness . "Provider Documentation" section prepared by Dony Hernandez. VTE Core Measure Inpt VTE Proph given/why not?: Enoxaparin (Lovenox)SQ, T.E.D. Stockings
[2016-04-25] MEDS ORDERED: HYDR-5688 PO (08:08)
[2016-04-25] MEDS: CETIRIZINE HCL 10 MG TAB PO SCH (08:49)
[2016-04-25] MEDS: AMLODIPINE BESYLATE 5 MG TAB PO SCH (08:49)
[2016-04-25] MEDS: ENOXAPARIN 40 MG/0.4 ML SYR SQ SCH (08:49)
[2016-04-25] MEDS: PANTOprazole SOD 40 MG TAB PO SCH (08:50)
[2016-04-25] MEDS: BENAZEPRIL HCL 10 MG TAB PO SCH (08:50)
[2016-04-25 09:50] VITALS: BP 125/70; PULSE 85; TEMP 37.5; O2SAT 98
--- NOTE | 2016-04-25 10:47 | DISCHARGE SUMMARY ---
DISCHARGE DIAGNOSIS: Adenocarcinoma of the cecum. SUMMARY: This is a 76-year-old female who was taken to [facility] to undergo an elective laparoscopic right hemicolectomy for a known cancerous lesion of the cecum. The surgery went as planned without complication. Following the procedure she was admitted to the hospital for her postoperative care and observation. The patient had an essentially uncomplicated postoperative course. Internal medicine was consulted to help manage her medical issues. By postoperative date #3 she was tolerating liquids and her pain was well controlled. She had a bowel movement at that time and by postoperative day #4 she was started on a soft diet. She tolerated the diet well without nausea and vomiting. By postoperative day #5 her pain was minimal. Her bowels had moved and she was tolerating a diet. She was deemed stable for discharge at this time. She was discharged home with written as well as verbal discharge instructions. She was to followup with myself, Dr. Hernandez, in the office with a 1-week period. At the time of her discharge pathology was not back yet. We will discuss this in the office.
[2017-04-06] MEDS ORDERED: COEN200C PO (14:06)
[2017-04-06] MEDS ORDERED: ROSU5TAB PO (14:06)
== END 2016-04-25 10:43 | disposition home or self-care (01) | DRG 331 ==
LOC: ENRESERVDT → ENRESERVTM → C.ACU 08:06 → C.MSN 13:09
PROVIDERS: ADMIT Surgery; ATTEND Surgery
PROC: 0DTF4ZZ Resection of Right Large Intestine, Percutaneous Endoscopic Approach (ICD-10-PCS; principal; 2016-04-20 10:05)
DX: C18.0 Malignant neoplasm of cecum (principal); I10 Essential (primary) hypertension; D64.9 Anemia, unspecified; K66.0 Peritoneal adhesions (postprocedural) (postinfection); K21.9 Gastro-esophageal reflux disease without esophagitis; E55.9 Vitamin D deficiency, unspecified; Z79.82 Long term (current) use of aspirin; Z82.49 Family history of ischemic heart disease and other diseases of the circulatory system

== ENCOUNTER → 2016-06-01 | Outpatient (CLI) | payer BC ==
[~2016-06-01] MED LIST changes: -CLINDAMYCIN 600 MG/54 ML D5W IV SCH; -GENTAMICIN INJ 80 MG in DEXTROSE 5% 100ML 100 ML IV SCH; -HEPARIN SOD 5000 UNIT/0.5 ML CARP SQ SCH; +HYDR-5688 PO; -LACTATED RINGER'S 1000ML 1,000 ML IV SCH; -VITACAP26 PO
== END | disposition home or self-care (01) ==
LOC: C.PAPS 08:40
PROVIDERS: ATTEND Obstetrics & Gynecology
DX: Z01.419 Encounter for gynecological examination (general) (routine) without abnormal findings (principal)

== ENCOUNTER → 2016-07-31 | Outpatient (CLI) | payer BC ==
[2016-07-31 12:16] LABS: ALT/SGPT 18 U/L (12-78); AST/SGOT 11 U/L (15-37); BLOOD UREA NITROGEN 21 mg/dl (7-18); BUN/CREATININE RATIO 22.9 (10-20); CALCIUM 9.3 mg/dl (8.5-10.1); CARBON DIOXIDE 29 mmol/L (21-32); CHLORIDE 107 mmol/L (98-107); GLUCOSE 83 mg/dl (70-99); POTASSIUM 4.1 mmol/L (3.5-5.1); SODIUM 141 mmol/L (136-145)
[2016-07-31 12:22] LABS: ALKALINE PHOSPHATASE 81 U/L (45-117)
[2016-07-31 12:27] LABS: BASO % 0.4 %; BASO ABS # 0.02 K/uL (0-0.2); COMPLETE YES; EOS % 4.8 %; HEMATOCRIT 35.5 % (37-47); LYMPH % 28.2 %; LYMPH ABS # 1.53 K/uL (1.2-3.4); MEAN CORPUSCULAR HEMOGLOBIN 28.1 pg (25-34); MEAN CORPUSCULAR HGB CONC 32.7 g/dl (32-36); MEAN PLATELET VOLUME 10.9 fL (7.4-10.4); MONO % 11.1 %; NEUT % 55.5 %; PLATELET COUNT 185 K/uL (130-400); RED BLOOD COUNT 4.13 M/uL (4.2-5.4); WHITE BLOOD COUNT 5.42 K/uL (4.8-10.8)
--- NOTE | 2016-08-01 10:12 | CODING QUERY NO DIAGNOSIS ---
TREATMENT RENDERED WITHOUT A DIAGNOSIS To promote full compliance with coding requirements relating to patient care, physician participation is requested in all cases of farmworker diversified crops uncertainty. Please assist us with providing a diagnosis/symptom for the test(s) below: A diagnosis/symptom was not documented on your Order. A valid diagnosis/symptom is required to bill all insurances. Please remember that we are unable to code a diagnosis of rule out, probable, possible, questionable, or suspected. Tests that require a diagnosis: DOS: 07/31/16 * CBC DIAGNOSIS: * CMP DIAGNOSIS: * CEA DIAGNOSIS: Provider Signature: Date: Thank you Shelby Azevedo [employer] Information Management Once completed, please kindly fax back to [phone] For questions please call [phone]
== END | disposition home or self-care (01) ==
LOC: C.LABBFT 08:35
PROVIDERS: ATTEND Internal Medicine Hematology & Oncology
DX: C19 Malignant neoplasm of rectosigmoid junction (principal)

== ENCOUNTER → 2016-12-26 | Outpatient (CLI) | payer BC ==
[~2016-12-26] MED LIST changes: -HYDR-5688 PO
--- NOTE | 2016-12-26 16:43 | MAMMOGRAPHY REPORT ---
BILATERAL DIGITAL SCREENING MAMMOGRAM WITH CAD: 12/26/2016 CLINICAL HISTORY: Routine screening. TECHNIQUE: Bilateral CC and MLO views were obtained. Current study was also evaluated with a Compute r Aided Detection (CAD) system. COMPARISON: Comparison is made to exams dated: 12/23/2015 mammogram, 12/02/2014 mammogram, 12/01/2013 ma mmogram, 11/29/2012 mammogram, 11/27/2011 mammogram, and 11/25/2010 mammogram - [facility] BREAST COMPOSITION: There are scattered areas of fibroglandular density in both breasts. FINDINGS: There are minimal vascular calcifications in both breasts. No suspicious mass, architectu ral distortion or cluster of suspicious microcalcifications is seen. IMPRESSION: ACR BI-RADS CATEGORY 1: NEGATIVE There is no mammographic evidence of malignancy. A 1 year screening mammogram is recommended. The pa tient will receive written notification of the results. Approximately 10% of breast cancers are not detected with mammography. A negative mammographic report should not delay biopsy if a clinically suggestive mass is present. Rebecca Padron M.D. ay/:12/26/2016 15:09:41 Transit Man: Karina GROSS(R)(M), [facility] letter sent: Normal 1/2 BI-RADS Code: ACR BI-RADS Category 1: Negative
== END | disposition home or self-care (01) ==
LOC: C.MAMM 09:33
PROVIDERS: ATTEND Obstetrics & Gynecology
DX: Z12.31 Encounter for screening mammogram for malignant neoplasm of breast (principal)

== ENCOUNTER → 2017-01-26 | Outpatient (CLI) | payer BC ==
[2017-01-26 13:03] LABS: BASO % 0.5 %; BASO ABS # 0.03 K/uL (0-0.2); COMPLETE YES; EOS % 3.5 %; HEMATOCRIT 37.7 % (37-47); IG% 0.2 %; LYMPH % 26.1 %; LYMPH ABS # 1.43 K/uL (1.2-3.4); MEAN CELL VOLUME 90.8 fL (80-100); MEAN CORPUSCULAR HEMOGLOBIN 30.1 pg (25-34); MEAN CORPUSCULAR HGB CONC 33.2 g/dl (32-36); MEAN PLATELET VOLUME 11.5 fL (7.4-10.4); MONO % 10.8 %; NEUT % 58.9 %; PLATELET COUNT 194 K/uL (130-400); RED BLOOD COUNT 4.15 M/uL (4.2-5.4); WHITE BLOOD COUNT 5.48 K/uL (4.8-10.8)
[2017-01-26 13:25] LABS: ALT/SGPT 20 U/L (12-78); BLOOD UREA NITROGEN 17 mg/dl (7-18); CALCIUM 9.7 mg/dl (8.5-10.1); CARBON DIOXIDE 28 mmol/L (21-32); CHLORIDE 107 mmol/L (98-107); CREATININE 0.88 mg/dl (0.60-1.20); GLUCOSE 90 mg/dl (70-99); POTASSIUM 4.1 mmol/L (3.5-5.1); SODIUM 142 mmol/L (136-145)
[2017-01-26 13:27] LABS: ALKALINE PHOSPHATASE 83 U/L (45-117); AST/SGOT 17 U/L (15-37); FERRITIN 64.7 ng/ml (8.0-388.0); TOTAL IRON BINDING CAPACITY 313 mcg/dl (250-450)
== END | disposition home or self-care (01) ==
LOC: C.LABBFT 08:37
PROVIDERS: ATTEND Internal Medicine Hematology & Oncology
DX: C18.9 Malignant neoplasm of colon, unspecified (principal)

== ENCOUNTER → 2017-04-27 | Day surgery (SDC) | payer BC ==
[2017-04-06 14:07] VITALS: Ht 156.2 cm; Wt 71.4 kg
[~2017-04-27] VITALS: Ht 156.2 cm; Wt 71.4 kg
[~2017-04-27] MED LIST changes: +COEN200C PO; -FERR50TA3 PO; +LIDOCAINE HCL 2% 2 ML VIAL (20MG/ML) ONE; +MIDAZOLAM HCL 1 MG/ML 2ML VIAL ONE; +ONDANSETRON INJ 2 MG/ML 2 ML VIAL ONE; +PROPOFOL IV EMULSION 10 MG/ML 20 ML VIAL IV ONE; +ROSU5TAB PO; +SODIUM CHLORIDE 0.9% 500ML 500 ML IV ONE
--- NOTE | 2017-04-27 09:58 | Endo History and Physical ---
History & Physical Date of Service: Apr 27, 2017. Chief Complaint: history of colon cancer Referring Physician: Dr. Ramón Damon History of Present Illness 77 yo CF who presents for colonoscopy secondary to history of colon cancer. Past Surgical History Hx Cardiac Surgery: No Hx Internal Defibrillator: No Hx Pacemaker: No Hx Abdominal Surgery: Yes (APPY) Hx of Implantable Prosthesis: No Hx Post-Op Nausea and Vomiting: No Hx Cancer Surgery: Yes (LAPAROSCOPIC COLON CANCER EXCISION) Hx Thoracic Surgery: No Hx Orthopedic: No Hx Urinary Tract Surgery: No Family History None Social History Smoking Status: Never Smoker Hx Substance Use: No Hx Alcohol Use: No Allergies Coded Allergies: Cephalexin (Verified Allergy, Unknown, UNKNOWN , HIVES?, 04/06/17) Current Medications Reported Home Medications Medications Dose Route/Sig Max Daily Dose Days Date Category Coenzyme Q-10 (Coenzyme Q10 (Ubidecarenone)) 200 Mg Cap 1 Cap PO QAM 04/06/17 Reported Crestor (Rosuvastatin Calcium) 5 Mg Tab 5 Mg PO QAM 04/06/17 Reported Zyrtec (Cetirizine Hcl) 10 Mg Tab 10 Mg PO QAM PRN 03/20/16 Reported Aspirin Chewable (Aspirin) 81 Mg Chew 81 Mg PO QAM 03/20/16 Reported Vitamin D3 (Cholecalciferol) 1,000 Unit Tab 1 Tab PO QAM 03/20/16 Reported [Vitamin B12] 2,500 Mcg SL QAM 03/20/16 Reported Hctz (Hydrochlorothiazide) 25 Mg Tab 0.5 Tab PO QAM 03/20/16 Reported Lotrel 5MG/20MG (Amlodipine/Benazepril HCl) 5 Mg/20 Mg Cap 1 Cap PO QAM 12/02/08 Reported Prilosec (Omeprazole) 20 Mg Capcr 1 Tab PO QAM 12/02/08 Reported Vital Signs Weight (Kilograms): 71.36 Height (Feet): 5 Height (Inches): 1.5 Date Time Temp Pulse Resp B/P (MAP) Pulse Ox O2 Delivery O2 Flow Rate FiO2 04/27/17 09:16 36.8 75 18 141/68 (92) 98 Room Air Physical Exam General Appearance: WD/WN, no apparent distress Respiratory/Chest: Auscultation: breath sounds normal Cardiovascular: Heart Auscultation: RRR Abdomen: Bowel Sounds: normal Inspection & Palpation: soft, non-distended, no tenderness, guarding & rebound Assessment and Plan Assessment: 77 yo CF who presents for colonoscopy secondary to history of colon cancer. Plan: Proceed with colonoscopy.
--- NOTE | 2017-04-27 10:30 | Discharge Instructions ---
Endoscopy Patient Instructions Date / Procedure(s) Performed Apr 27, 2017. Colonoscopy Allergy Information Coded Allergies: Cephalexin (Verified Allergy, Unknown, UNKNOWN , HIVES?, 04/06/17) Discharge Date / Findings Apr 27, 2017. Internal hemorrhoids Medication Instructions Stopped Medication(s): took baby ASA yesterday at 0630 OK to resume all medications today as prescribed Reported Home Medications Medications Dose Route/Sig Max Daily Dose Days Date Category Coenzyme Q-10 (Coenzyme Q10 (Ubidecarenone)) 200 Mg Cap 1 Cap PO QAM 04/06/17 Reported Crestor (Rosuvastatin Calcium) 5 Mg Tab 5 Mg PO QAM 04/06/17 Reported Zyrtec (Cetirizine Hcl) 10 Mg Tab 10 Mg PO QAM PRN 03/20/16 Reported Aspirin Chewable (Aspirin) 81 Mg Chew 81 Mg PO QAM 03/20/16 Reported Vitamin D3 (Cholecalciferol) 1,000 Unit Tab 1 Tab PO QAM 03/20/16 Reported [Vitamin B12] 2,500 Mcg SL QAM 03/20/16 Reported Hctz (Hydrochlorothiazide) 25 Mg Tab 0.5 Tab PO QAM 03/20/16 Reported Lotrel 5MG/20MG (Amlodipine/Benazepril HCl) 5 Mg/20 Mg Cap 1 Cap PO QAM 12/02/08 Reported Prilosec (Omeprazole) 20 Mg Capcr 1 Tab PO QAM 12/02/08 Reported Provider Instructions Activity Restrictions - No exercising or heavy lifting for 24 hours. - Do not drink alcohol the day of the procedure. - Do not drive a car or operate machinery until the day after the procedure. - Do not make any important decisions or sign important papers in 24 hours after the procedure. Following Day: - Return to full activity which may include returning to work/school. Diet Start your diet with liquids and light foods (jello, soup, juice, toast). Then eat your usual diet if not nauseated. Treatment For Common After Affects For mild abdominal pain, bloating, or excessive gas: - Rest - Eat lightly - Lie on right side Follow-Up Information Follow-up with Dr. Ramón Damon as scheduled Anesthesia Information What You Should Know You have had a procedure that required some medicine to reduce anxiety and discomfort. This treatment is called moderate sedation. After receiving the treatment, you may be sleepy, but you will be able to breathe on your own. The effects of the treatment may last for several hours. Follow these instructions along with Activity/Diet recommendations noted above: * Do NOT do anything where dizziness or clumsiness would be dangerous. * Rest quietly at home today, then you can be up and about tomorrow. * Have a responsible person stay with you the rest of today. * You may have had an I.V. today. If so, you may take the dressing off later today. Recommendations Call your doctor if: * Trouble breathing * Continuous vomiting for more than 24 hours * Temperature above 101 degrees * Severe abdominal pain or bloating * Pain not relieved by pain medicine ordered * There is increased drainage or redness from any incision * A large amount of rectal bleeding greater than 2-3 tablespoons. (If you had a polyp/s removed or have hemorrhoids, a small amount of blood - from the rectum is to be expected.) * You have any unanswered questions or concerns. IN THE EVENT OF A SERIOUS EMERGENCY, GO TO THE NEAREST EMERGENCY ROOM Your discharge instructions were prepared by provider Ang Llanes. Patient Instructions Signature Page An Lin Patient (or Guardian) Signature/Date: I have read and understand the instructions given to me by my caregivers. Caregiver/RN/Doctor Signature/Date: The above-named patient and/or guardian has received patient instructions on this date. + Original Patient Signature Page (only) stays with chart. Please make copy for patient.
--- NOTE | 2017-04-27 10:33 | GI REPORT ---
Procedure Date: 04/27/2017 10:03 AM Procedure: Colonoscopy Indications: High risk colon cancer surveillance: Personal history of colon cancer Medicines: Monitored Anesthesia Care Complications: No immediate complications. Estimated Blood Loss: Estimated blood loss: none. Procedure: Pre-Anesthesia Assessment: - Prior to the procedure, a History and Physical was performed, and patient medications and allergies were reviewed. The patient's tolerance of previous anesthesia was also reviewed. The risks and benefits of the procedure and the sedation options and risks were discussed with the patient. All questions were answered, and informed consent was obtained. Prior Anticoagulants: The patient has taken aspirin, last dose was 1 day prior to procedure. ASA Grade Assessment: II - A patient with mild systemic disease. After reviewing the risks and benefits, the patient was deemed in satisfactory condition to undergo the procedure. After I obtained informed consent, the scope was passed under direct vision. Throughout the procedure, the patient's blood pressure, pulse, and oxygen saturations were monitored continuously. The On-site loaner was introduced through the anus and advanced to the ileocolonic anastomosis. The colonoscopy was performed without difficulty. The patient tolerated the procedure well. The quality of the bowel preparation was good. The terminal ileum and the rectum were photographed. Findings: The perianal and digital rectal examinations were normal. There was evidence of a prior end-to-side ileo-colonic anastomosis in the ascending colon. This was patent and was characterized by healthy appearing mucosa. The anastomosis was traversed. Non-bleeding internal hemorrhoids were found during retroflexion. The hemorrhoids were small. Impression: - Patent end-to-side ileo-colonic anastomosis, characterized by healthy appearing mucosa. - Non-bleeding internal hemorrhoids. - No specimens collected. Recommendation: - Resume previous diet. - Continue present medications. - No repeat colonoscopy due to age and the absence of advanced adenomas. - Return to primary care physician as previously scheduled. Ang Llanes, 04/27/2017 10:33:34 AM This report has been signed electronically. Note Initiated On: 04/27/2017 10:03 AM I attest to the content of the Intraoperative Record and orders documented therein, exceptions below
[2017-04-27 11:02] VITALS: BP 111/57; PULSE 61; O2SAT 97
--- NOTE | 2017-04-27 11:09 | Anesthesiology Progress Note ---
Anesthesia Post Op Note Date & Time Apr 27, 2017 at 11:08 Vital Signs Pain Intensity: 0 Vital Signs Past 12 Hours Date Time Temp Pulse Resp B/P (MAP) Pulse Ox O2 Delivery O2 Flow Rate FiO2 04/27/17 11:02 61 18 111/57 (75) 97 Room Air 04/27/17 10:46 61 18 112/60 (77) 98 Room Air 04/27/17 10:31 70 16 118/51 (73) 99 Room Air 04/27/17 09:16 36.8 75 18 141/68 (92) 98 Room Air Notes Mental Status: alert / awake / arousable, participated in evaluation Pt Amnestic to Procedure: Yes Nausea / Vomiting: adequately controlled Pain: adequately controlled Airway Patency, RR, SpO2: stable & adequate BP & HR: stable & adequate Hydration State: stable & adequate Anesthetic Complications: no major complications apparent
== END | disposition home or self-care (01) ==
LOC: C.GI 08:41
PROVIDERS: ATTEND Internal Medicine
DX: Z12.11 Encounter for screening for malignant neoplasm of colon (principal); Z85.038 Personal history of other malignant neoplasm of large intestine; K64.8 Other hemorrhoids; Z90.89 Acquired absence of other organs; Z79.82 Long term (current) use of aspirin; I10 Essential (primary) hypertension; E78.5 Hyperlipidemia, unspecified; K21.9 Gastro-esophageal reflux disease without esophagitis

== ENCOUNTER → 2017-05-24 | Outpatient (CLI) | payer BC ==
[~2017-05-24] MED LIST changes: -LIDOCAINE HCL 2% 2 ML VIAL (20MG/ML) ONE; -MIDAZOLAM HCL 1 MG/ML 2ML VIAL ONE; -ONDANSETRON INJ 2 MG/ML 2 ML VIAL ONE; -PROPOFOL IV EMULSION 10 MG/ML 20 ML VIAL IV ONE; -SODIUM CHLORIDE 0.9% 500ML 500 ML IV ONE
== END | disposition home or self-care (01) ==
LOC: C.MAMM 09:14
PROVIDERS: ATTEND Internal Medicine
DX: M85.89 Other specified disorders of bone density and structure, multiple sites (principal)

== ENCOUNTER → 2017-08-03 | Outpatient (CLI) | payer BC ==
[2017-08-03 17:48] LABS: BASO % 0.3 %; BASO ABS # 0.02 K/uL (0-0.2); EOS % 3.3 %; EOS ABS # 0.24 K/uL (0-0.5); HEMATOCRIT 36.2 % (37-47); HEMOGLOBIN 12.4 g/dL (12.0-16.0); IG# 0.01 K/uL (0.00-0.02); LYMPH % 27.3 %; LYMPH ABS # 2.01 K/uL (1.2-3.4); MEAN CELL VOLUME 89.4 fL (80-100); MEAN CORPUSCULAR HEMOGLOBIN 30.6 pg (25-34); MEAN CORPUSCULAR HGB CONC 34.3 g/dl (32-36); MEAN PLATELET VOLUME 10.9 fL (7.4-10.4); MONO ABS # 0.81 K/uL (0.11-0.59); NEUT ABS # 4.28 K/uL (1.4-6.5); PLATELET COUNT 197 K/uL (130-400); RED CELL DISTRIBUTION WIDTH CV 12.7 % (11.5-14.5); RED CELL DISTRIBUTION WIDTH SD 41.4 fL (36.4-46.3); WHITE BLOOD COUNT 7.37 K/uL (4.8-10.8)
[2017-08-03 18:10] LABS: ALBUMIN 3.8 gm/dl (3.4-5.0); ALT/SGPT 19 U/L (12-78); AST/SGOT 14 U/L (15-37); BLOOD UREA NITROGEN 28 mg/dl (7-18); CALCIUM 9.5 mg/dl (8.5-10.1); CARBON DIOXIDE 30 mmol/L (21-32); CREATININE 1.09 mg/dl (0.60-1.20); GLUCOSE 90 mg/dl (70-99); SODIUM 138 mmol/L (136-145)
[2017-08-03 18:12] LABS: ALKALINE PHOSPHATASE 88 U/L (45-117); TOTAL PROTEIN 7.7 gm/dl (6.4-8.2)
--- NOTE | 2017-08-15 13:25 | CODING QUERY NO DIAGNOSIS ---
TREATMENT RENDERED WITHOUT A DIAGNOSIS 42 To promote full compliance with coding requirements relating to patient care, physician participation is requested in all cases of wirer passenger car uncertainty. Please assist us with providing a diagnosis/symptom for the test(s) below: A diagnosis/symptom was not documented on your Order. A valid diagnosis/symptom is required to bill all insurances. Please remember that we are unable to code a diagnosis of rule out, probable, possible, questionable, or suspected. DOS 08/03/17 Tests that require a diagnosis: * CBC W/AUTO DIFF DIAGNOSIS: * COMP METABOLIC DIAGNOSIS: * LDH DIAGNOSIS: Provider Signature: Date: Thank you Becky Stringer [facility] Information Management Once completed, please kindly fax back to [phone] For questions please call [phone]
== END | disposition home or self-care (01) ==
LOC: C.LAB 16:29
PROVIDERS: ATTEND Internal Medicine Hematology & Oncology
DX: C18.9 Malignant neoplasm of colon, unspecified (principal); D50.9 Iron deficiency anemia, unspecified

== ENCOUNTER 2023-02-02 10:14 | Observation (INO) ==
--- NOTE | 2023-01-08 13:17 | PAT Medication Instructions ---
Medication Instructions Date of Service January 08, 2023 Home Medications coenzyme Q10 100 mg capsule 100 mg PO QAM omeprazole 20 mg capsule,delayed release 20 mg PO PRN PRN reflux rosuvastatin 5 mg tablet 5 mg PO QAM benazepril 20 mg tablet 20 mg PO HS cholecalciferol (vitamin D3) 125 mcg (5,000 unit) tablet (Vitamin D3) 125 mcg PO QAM cyanocobalamin (vitamin B-12) 1,000 mcg capsule 1,000 mcg PO QAM hydrochlorothiazide 25 mg tablet 25 mg PO QAM Medication Instructions: STOP taking 2 weeks before surgery coenzyme Q10 100 mg capsule 100 mg PO QAM DO NOT take the morning of surgery hydrochlorothiazide 25 mg tablet 25 mg PO QAM cholecalciferol (vitamin D3) 125 mcg (5,000 unit) tablet (Vitamin D3) 125 mcg PO QAM cyanocobalamin (vitamin B-12) 1,000 mcg capsule 1,000 mcg PO QAM Take morning of surgery With a small sip of water, OTHERWISE NOTHING TO EAT OR DRINK AFTER MIDNIGHT: omeprazole 20 mg capsule,delayed release 20 mg PO PRN PRN reflux rosuvastatin 5 mg tablet 5 mg PO QAM Take evening before surgery benazepril 20 mg tablet 20 mg PO HS Other Notes If you have any questions please call us at [phone] or [phone] or [phone] or [phone]
--- NOTE | 2023-01-12 09:44 | Anesthesiology Consultation ---
Date of Service January 12, 2023 Assessment & Plan (1) Encounter for pre-operative examination: - 01/25 [place] PCP transfer of care appointment, will also request pre-operative notation which [facility] personal secretary advised will be coordinated. - Outpatient joint pathway: Per surgeon and patient, plan for outpatient joint program. She states will be staying at her daughter's home and her daughter and son-in-law will be home. Pending upcoming PCP appt. Chart Review Chart Review: Pending: Refer to Additional Notes / Consult section and Patient seen in Pre Admission Testing Teaching & Discussion Pre-Anesthesia Teaching/Discussion Notes: Instructed NPO after midnight before surgery, except medications with 15 cc of water. Medication instructions provided according to the [facility] guidelines. History Surgery Operation Date: 02/02/23 08:00 Proposed Procedures p OP: Left Total Knee Arthroplasty - Maged Palmer DO Height/Weight Height: 5 ft 1 in Weight: 68.7 kg Allergies Allergy/AdvReac Type Severity Reaction Status Date / Time cephalexin Allergy Intermediate Hives Verified 01/08/23 10:17 Medications Home Medications Medication Instructions Recorded Confirmed Last Taken coenzyme Q10 100 mg capsule 100 mg PO QAM 11/14/18 01/08/23 08/02/20 omeprazole 20 mg capsule,delayed 20 mg PO PRN PRN reflux 10/25/22 01/08/23 Unknown release rosuvastatin 5 mg tablet 5 mg PO QAM 10/25/22 01/08/23 Unknown benazepril 20 mg tablet 20 mg PO HS 01/08/23 01/08/23 Unknown cholecalciferol (vitamin D3) 125 125 mcg PO QAM 01/08/23 01/08/23 Unknown mcg (5,000 unit) tablet (Vitamin D3) cyanocobalamin (vitamin B-12) 1,000 mcg PO QAM 01/08/23 01/08/23 Unknown 1,000 mcg capsule hydrochlorothiazide 25 mg tablet 25 mg PO QAM 01/08/23 01/08/23 Unknown alendronate 70 mg tablet mg PO 01/12/23 Unknown Additional Notes: Pt was instructed and it was written on provided medication instructions that she cannot take alendronate day of surgery. She verbalized full understanding and agreement, denied questions or concerns. Past Medical History Medical History (Updated 01/12/23 @ 09:53 by Julienne Sauceda PA-C) Adenocarcinoma, colon (2016) Stage II, T3 s/p colectomy 2016. No adjuvant chemoradiation required. 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 Exercise / Class Metabolic Activity II 4-5 Yardwork/Stairs/Walk up hill (denies chest discomfort or shortness of breath with 1 FOS) Past Family History Family History Mother , age 87 Coronary heart disease Myocardial infarction H/O carotid endarterectomy Stroke Father Gastric cancer Son Type 2 diabetes mellitus Hyperlipidemia Diabetes Daughter Migraine headache Grandfather (Maternal) Myocardial infarction Unknown Breast cancer Aunt Breast cancer Other No family history of adverse response to anesthesia Denies family history of Ovarian cancer Prostate cancer Lung cancer Colorectal cancer Past Surgical History Surgical History History of carpal tunnel surgery of left wrist History of colonoscopy with polypectomy History of esophagogastroduodenoscopy (EGD) History of tooth extraction all teeth removed S/P appendectomy S/P right hemicolectomy 04/20/16 @ [facility] Past Anesthesia History No Hx of Anesthesia Complications and No Family Hx of Anesthesia Complications History of PONV No Hx of PONV and No Hx of Motion Sickness Social History Smoking Status: Never smoker Do You Dip or Chew Tobacco: No Hx Alcohol Use: No substance use type: does not use Review of Systems Patient denies chest pain, shortness of breath, dyspnea on exertion, snoring, witnessed apneas, fever, chills, cough, wheezing, or palpitations. Physical Exam Vital Signs Vitals BP 145/75 P 76 TEMP 98.4 SP02 98% on RA RESP 18 Physical Patient resting comfortably in chair in no acute distress, alert and oriented, responding appropriately throughout visit Full cervical extension range of motion without pain TMD 3.5 finger breadths Mallampati Score 2 Dentition: edentulous, full upper and lower dentures Lungs: normal respiratory effort. Good air movement, clear throughout to auscultation, no adventitious breath sounds Cardiac: regular rate and rhythm, no murmurs noted Carotid arteries: negative bruit bilat Lab Results Anesthesia Preop Results Results Anesthesia Widget: WBC 5.96 K/ul (4.8-10.8) 01/12/23 Hgb 11.0 g/dl (12.0-16.0) L 01/12/23 Hct 34.7 % (37.0-47.0) L 01/12/23 Plt 196 K/uL (130-400) 01/12/23 Na 139 mmol/L (136-145) 01/12/23 K 4.5 mmol/L (3.5-5.1) 01/12/23 Cl 107 mmol/L (98-107) 01/12/23 CO2 27 mmol/L (21-32) 01/12/23 BUN 28 mg/dl (6-23) H 01/12/23 Creat 1.02 mg/dl (0.6-1.2) 01/12/23 Glucose Level 93 mg/dl (70-99(Fasting)) 01/12/23 PT 10.6 Seconds (9.0-12.0) 01/12/23 PTT 30.3 Seconds (21.0-31.0) 01/12/23 INR 1.0 (0.9-1.1) 01/12/23 Blood Type O Positive 01/12/23 Antibody Screen NEGATIVE 01/12/23 Testing Electrocardiogram Date: 01/12/23 NSR, rate 65 bpm Chest X-Ray Date: 10/25/22 No acute process Other Testing Carotid doppler 06/27/22 60-69% stenosis bilat ICAs Complex, calcified plaque in the bilateral bulb and ICA
--- NOTE | 2023-02-01 08:03 | History & Physical Report ---
Date of Service February 01, 2023 Assessment & Plan (1) Left knee DJD: We will proceed with a left total knee arthroplasty. Postoperatively she will be started on aspirin for DVT prophylaxis and kept overnight in the hospital for postop medical management. She plans to use energy physical therapy upon discharge. History of Present Illness Chief Complaint: Osteoarthritis of the left knee. Primary Care Provider: Charlotte Muñoz MD An is a pleasant 82-year-old female who has been ill with chronic increasing left knee pain. X-rays and clinical examination have been diagnostic for advanced osteoarthritis of the left knee. After failing extensive conservative treatment, she has elected proceed with a left total knee arthroplasty.. Allergies Allergy/AdvReac Type Severity Reaction Status Date / Time cephalexin Allergy Intermediate Hives Verified 01/25/23 10:51 Home Medications Medication Instructions Recorded Confirmed Type coenzyme Q10 100 mg capsule 100 mg PO QAM 11/14/18 01/25/23 History omeprazole 20 mg capsule,delayed 20 mg PO PRN PRN reflux 10/25/22 01/25/23 History release benazepril 20 mg tablet 20 mg PO HS 01/08/23 01/25/23 History cholecalciferol (vitamin D3) 125 125 mcg PO QAM 01/08/23 01/25/23 History mcg (5,000 unit) tablet (Vitamin D3) cyanocobalamin (vitamin B-12) 1,000 mcg PO QAM 01/08/23 01/25/23 History 1,000 mcg capsule hydrochlorothiazide 25 mg tablet 25 mg PO QAM 01/08/23 01/25/23 History aspirin 81 mg tablet,delayed 81 mg PO DAILY #90 tabs 01/25/23 01/25/23 Rx release rosuvastatin 10 mg tablet 10 mg PO QAM #90 tabs 01/25/23 01/25/23 Rx Past Med/Surg History Medical History Adenocarcinoma, colon (2017) Stage II, T3 s/p colectomy 2016. No adjuvant chemoradiation required. 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 PCP note Chronic anemia Gastroesophageal reflux disease controlled, stable per pt History of esophageal dilatation occasional dysphagia with food; notes will soon need a dilatation, unsure when last completed History of peripheral vascular disease <40% left and 40-60% right ICA stenosis on doppler 03/2013 small vessel disease Brain MRI 03/2013 Hyperlipidemia Hypertension controlled, stable per pt Lower extremity edema per pt resolved with diuretic Lumbar radiculopathy Osteoporosis, unspecified Prediabetes Surgical History History of carpal tunnel surgery of left wrist History of colonoscopy with polypectomy History of esophagogastroduodenoscopy (EGD) History of tooth extraction all teeth removed S/P appendectomy S/P right hemicolectomy 04/20/16 @ [facility] Family History Mother , age 87 Coronary heart disease Myocardial infarction H/O carotid endarterectomy Stroke Father Gastric cancer Son Type 2 diabetes mellitus Hyperlipidemia Diabetes Daughter Migraine headache Grandfather (Maternal) Myocardial infarction Unknown Breast cancer Aunt Breast cancer Other No family history of adverse response to anesthesia Denies family history of Ovarian cancer Prostate cancer Lung cancer Colorectal cancer Social History Smoking Status: Never smoker Second Hand Exposure: No; Do You Dip or Chew Tobacco: No; Hx Alcohol Use: No Preferred Language: [place] Communication Ability: Effective Visual Impairment: Diminished Hearing Ability: Normal Capacity Planning Engineer Required: No Beliefs That Will Affect Care: None marital status: Current Living Situation: Spouse Current Living Situation Comment: current occupational status: retired How many Children do You have: 3 Feels Safe at Home: Yes Childhood Exposure to Second-Hand Smoke: No caffeine: Yes (Tea x 1 cup per day. ) during the past year weight has: remained stable Dental Care, Regularly: Yes Physical Activity Frequency: 3-4 Times per Week Physical Activity Frequency Comment: walking Seatbelt Use: always Sunscreen Use: Yes Assistive Devices: Denture - Upper, Denture - Lower and Glasses Review of Systems All systems reviewed & are unremarkable except as noted in HPI & below. Physical Exam On physical examination of the left knee, she does have a valgus deformity. She is range of motion 0 to 120 degrees. No gross instability. She has tenderness palpation of the distal lateral femoral condyle and over the lateral joint line.. Constitutional WD/WN, vitals as above Eyes PERRL, conjunctivae normal, anicteric sclerae ENMT external ear and nose normal, oropharynx normal Neck trachea midline, no thyromegaly Respiratory normal respiratory effort, lungs clear to auscultation Cardiovascular RRR, no murmur, no edema Gastrointestinal (Abdomen) normal bowel sounds, soft, nontender, no hepatosplenomegaly Skin no rashes, warm and dry Psychiatric A+Ox3, euthymic affect Results & Data Results & Data Laboratory Results . Diagnostic Findings X-rays of the left knee do show advanced lateral compartment arthritis with joint space narrowing, osteophyte formation, and [id number] reticulation.. PG Care Time/CCT Total # of Minutes Spent Total Time Spent with Patient: Total time spent is greater than 50% in coordination of care (as documented) at patient's floor/unit and/or counseling patient: Coding Level of Care Code None Diagnoses Left knee DJD M17.12
[~2023-02-02 10:14] MED LIST changes: +ACETAMINOPHEN 500 MG TAB PO SCH; -AMLO5CAP2 PO; -ASPCH81X PO; -CETI10TA10 PO; -CHOL1000 PO; -COEN200C PO; +FAMOTIDINE 20 MG TAB PO SCH; +GABAPENTIN 300 MG CAP PO SCH; -HYDR25TA4 PO; +LR 500ML BOLUS, THEN 15ML/HR IV SCH; +LR 60ML/HR IV SCH; +ORTHO JOINT MIX INFIL SCH; -PRLSR20 PO; +ROPIVACAINE 0.5% 5 MG/ML 30 ML VIAL ONE; -ROSU5TAB PO; +TRANEXAMIC ACID 1,000 MG **IV Intra-op IV SCH; +TRANEXAMIC ACID 1,000 MG **IV Pre-op IV SCH; -VITAMIN B12 SL; +dexAMETHasone 4 MG TAB PO SCH
--- NOTE | 2023-02-02 10:54 | History & Physical Bridge Note ---
Date of Service February 02, 2023 History & Physical Bridge Note I have examined the patient, reviewed the History & Physical and in the interval since the performance of the History & Physical I have noted the following changes of clinical significance: no changes noted
[2023-02-02] MEDS ORDERED: ceFAZolin 2,000 MG/15 ML IV PUSH IV ONE (11:01)
[2023-02-02] MEDS ORDERED: MIDAZOLAM HCL 1 MG/ML 2ML VIAL ONE (11:03)
[2023-02-02] MEDS ORDERED: fentaNYL citrate PF 100 MCG/2 ML VIAL ONE (11:03)
[2023-02-02] MEDS ORDERED: ORTHO JOINT ANESTHETIC ONE (11:26)
[2023-02-02] MEDS ORDERED: BUPIVACAINE 0.5 % 5 MG/1 ML PF 10ML VIAL ONE (11:42)
[2023-02-02] MEDS ORDERED: LIDOCAINE 2% 2 ML VIAL/AMP(20MG/ML) INFIL ONE (13:31)
[2023-02-02] MEDS ORDERED: PROPOFOL IV EMULSION 10 MG/ML 20 ML VIAL IV ONE (13:31)
[2023-02-02] MEDS ORDERED: ePHEDrine sulfate 50 MG/5 ML SYR ONE (13:31)
--- NOTE | 2023-02-02 13:46 | Operative Report ---
PG Post Operative Report Pre & Post Diagnosis Operation Date: 02/02/23 11:40 Pre-Op Diagnosis: Degenerative Joint Disease Knee Left Post-Op Diagnosis: Degenerative Joint Disease Knee Left I identified the patient and participated in the time-out.: Yes Procedure Operation Date: 02/02/23 11:40 Actual Procedures p Left Total Knee Arthroplasty(Left) - Maged Palmer DO Surgeon Maged Palmer DO Wire Winding Machine Operator Maged Whiting PA-C Estimated Blood Loss 30 Findings Consistent with Post-Op Diagnosis Specimens Left femoral and tibial bone Description of Procedure Implants used: I used a Cem Persona total knee arthroplasty system with a size 7 femur, C tibia, 28 oval patella, and a size 12 medial congruent polyethylene bearing. All components were cemented in place with Biomet cement. An arrived [facility] for the above procedure. She was seen in the preoperative holding area and the operative extremity was identified and signed. She was given a preoperative antibiotic, TXA, a spinal anesthetic and an adductor nerve block. She was taken back to the operating room and laid on the table in supine position. She was given basic sedation. The operative knee was then prepped and draped in sterile fashion. A timeout was done, and the patient and the operative extremity was properly identified. A midline incision was made directly over the patella. Dissection was taken down to the extensor mechanism. A midvastus arthrotomy was used. The medial retinaculum was released and the fat pad was mostly excised. The knee was flexed and the ACL, PCL, and meniscus were removed. A drill was sent down the center of the femoral canal followed by an intramedullary treva. Off that treva a distal femoral cutting block was placed. 9 mm was resected off the distal femur at 5 of valgus. A posterior referencing AP sizing guide was then placed on the distal femur. The femur measured to be a size 7. 2 drill holes were placed in 3 of external rotation. A 4-in-1 cutting block was then impacted into place. Anterior, posterior, and chamfer cuts were then made. The proximal tibia was then exposed. An external tibial alignment guide was placed. A tibial cut guide was then anchored in place and the proximal tibia was then resected. The posterior aspect of the knee was then opened up and any additional meniscus fragments and osteophytes were removed. The tibia measured to be a size C. The tibial plate was then placed in the appropriate rotation and the tibia was drilled and punched. Trial components were then placed. I used a size 12 medial congruent polyethylene insert. The knee was brought through a full range of motion and felt to be stable. The peg holes for the femoral component were then drilled. The patella was then everted and 9 mm was resected off the posterior aspect of the patella. The patella measured to be a size 28 oval. 3 peg holes were then drilled. A trial patella was placed. The knee was once again brought through a full range of motion and felt to be stable. Trial components were then removed. The surrounding soft tissues were injected with 100 cc of an orthopedic pain control cocktail. All components were then cemented into place with Biomet cement. The final polyethylene insert was then snapped into place. Once cement was dry the tourniquet was deflated. Hemostasis was obtained. A dilute betadyne lavage was then done for 3 minutes. The joint was then irrigated with normal saline solution. The midvastus arthrotomy was then closed with #1 Vicryl suture. The skin was closed with 2-0 Vicryl, 3-0V lock suture, and lorne. A soft compressive dressing was placed. She was then transferred to a hospital bed and taken to the postanesthesia care unit in stable condition. She tolerated the procedure well. Maged Whiting PA-C, was present for the entire procedure. He was critical for patient positioning, prepping, draping, retraction exposure, wound closure and application of sterile dressing. I attest to the content of the Intraoperative Record and any orders documented therein. Any exceptions are noted below.
[2023-02-02] MEDS ORDERED: ONDANSETRON INJ 2 MG/ML 2 ML VIAL ONE (13:52)
[2023-02-02] MEDS ORDERED: ePHEDrine sulfate 50 MG/ML AMP IV PRN (14:34)
[2023-02-02] MEDS ORDERED: ATROPINE SULFATE 0.1 MG/ML 10ML SYR IV PRN (14:34)
--- NOTE | 2023-02-02 15:04 | Anesthesiology Progress Note ---
Date of Service February 02, 2023 Anesthesia Post Procedure Vital Signs Vital Signs: Temp Pulse Pulse Resp BP Pulse Ox O2 Del Method 02/02/23 14:55 64 16 139/64 95 Room Air 02/02/23 14:45 86 17 121/53 L 95 Room Air 02/02/23 14:35 86 17 137/63 95 Room Air 02/02/23 14:25 85 15 136/63 96 Room Air 02/02/23 14:15 86 18 128/59 L 97 Room Air 02/02/23 14:05 36.2 C L 89 18 129/61 100 Oxymask 02/02/23 10:43 36.4 C L 70 18 151/67 H 98 Room Air O2 Flow Rate 02/02/23 14:55 02/02/23 14:45 02/02/23 14:35 02/02/23 14:25 02/02/23 14:15 02/02/23 14:05 5 02/02/23 10:43 Transfer of Care Handoff Completed per policy Notes Mental Status: alert / awake / arousable and participated in evaluation Patient Amnestic to Procedure: Yes Nausea / Vomiting: adequately controlled Pain: adequately controlled Airway Patency, RR, SpO2: stable & adequate BP & HR: stable & adequate Hydration State: stable & adequate Anesthetic Complications: no major complications apparent
--- NOTE | 2023-02-02 15:33 | XRay Report ---
LEFT KNEE 2 VIEWS History: Left total knee arthroplasty. Degenerative arthritis. Postop. FINDINGS: The patient is status post a left total knee arthroplasty. The hardware is intact. No fract ure or dislocation. Skin lorne are in place. IMPRESSION: Left total knee arthroplasty. No evidence for hardware complication. ACT 112: Negative or not required by law. Electronically signed by: Greg Dobson M.D. 02/02/2023 3:31 PM
[2023-02-02] MEDS ORDERED: MAGNESIUM HYDROXIDE SUSP 30 ML UDC PO PRN (15:54)
[2023-02-02] MEDS ORDERED: NALOXONE HCL 0.4 MG/1 ML VIAL/CARP IV PRN (15:54)
[2023-02-02] MEDS ORDERED: ONDANSETRON INJ 2 MG/ML 2 ML VIAL IV PRN (15:54)
[2023-02-02] MEDS ORDERED: bisacodyL 10 MG SUPP PR PRN (15:54)
[2023-02-02] MEDS ORDERED: HYDROmorphone INJ 0.5 MG/0.5 ML SYR IV PRN (15:54)
[2023-02-02] MEDS ORDERED: oxyCODONE HCL IR 5 MG TAB (IMMEDIATE RELEASE) PO PRN (15:54)
[2023-02-02] MEDS ORDERED: METOCLOPRAMIDE HCL INJ 5 MG/ML 2 ML VIAL IV PRN (15:54)
[2023-02-02] MEDS: ALLERGY Noted to ORDERED Medication SCH ×4 (16:03→23:00)
[2023-02-02] MEDS ORDERED: PANTOprazole 40 MG TAB PO PRN (16:05)
[2023-02-02] MEDS: SODIUM CHLORIDE 0.9% 1,000 ML IV SCH (16:33)
[2023-02-02] MEDS: DOCUSATE SODIUM 100 MG CAP PO SCH (20:49)
[2023-02-02] MEDS: ACETAMINOPHEN 500 MG TAB PO SCH (20:49)
[2023-02-02] MEDS: ASPIRIN 81 MG ECTAB PO SCH (20:49)
[2023-02-02] MEDS: ceFAZolin 2000MG 2,000 MG/15 ML SYR IV SCH (20:53)
[2023-02-02] MEDS ORDERED: SENNA 8.6 MG TAB PO SCH (21:00)
[2023-02-02] MEDS ORDERED: ENALAPRIL MALEATE 10 MG TAB PO SCH (21:00)
[2023-02-03] MEDS: SODIUM CHLORIDE 0.9% 1,000 ML IV SCH (00:51)
[2023-02-03] MEDS: ACETAMINOPHEN 500 MG TAB PO SCH (04:25)
[2023-02-03] MEDS: ceFAZolin 2000MG 2,000 MG/15 ML SYR IV SCH (04:25)
--- NOTE | 2023-02-03 07:17 | Orthopedic Progress Note ---
Date of Service February 03, 2023 Assessment & Plan (1) Status post left knee replacement: Overall she is doing very well. She is not having much pain in the left knee. She will be seen by physical therapy today for ambulation and range of motion exercises. She is on aspirin for DVT prophylaxis. She can be discharged to home later today. She will follow-up with orthopedics in 2 weeks. Saw Nolan was seen and examined at bedside this morning. Overall she is doing very well. She is not having much pain in the left knee. She has been up and ambulating to the bathroom. She has no complaints.. Review of Systems All systems reviewed & are unremarkable except as noted in HPI & below. Physical Exam On physical examination left knee, the dressing is clean and dry. She has active dorsiflexion plantarflexion of her left ankle. Sensation is intact throughout.. Results & Data Results & Data Laboratory Results . Diagnostic Findings Postoperative x-rays of the left knee show the prosthesis to be in anatomic alignment without any evidence of fracture complication, or loosening.. PG Care Time/CCT Total # of Minutes Spent Total Time Spent with Patient: Total time spent is greater than 50% in coordination of care (as documented) at patient's floor/unit and/or counseling patient: Coding Level of Care Code 51050 Post Operative Follow-Up Diagnoses Status post left knee replacement Z96.652
--- NOTE | 2023-02-03 07:18 | Discharge Summary ---
Date of Service February 03, 2023 Admission HPI (Per Admitting) An is a pleasant 82-year-old female who has been ill with chronic increasing left knee pain. X-rays and clinical examination have been diagnostic for advanced osteoarthritis of the left knee. After failing extensive conservative treatment, she has elected proceed with a left total knee arthroplasty.. Admission Exam (Per Admitting) On physical examination of the left knee, she does have a valgus deformity. She is range of motion 0 to 120 degrees. No gross instability. She has tenderness palpation of the distal lateral femoral condyle and over the lateral joint line.. Principal Diagnosis Same as "Discharge Diagnosis" noted below under Discharge Instructions. Discharge Exam On physical examination left knee, the dressing is clean and dry. She has active dorsiflexion plantarflexion of her left ankle. Sensation is intact throughout.. Discharge Data Procedures Performed Operation Date: 02/02/23 11:40 Actual Procedures p Left Total Knee Arthroplasty(Left) - Maged Palmer DO Ordered Studies 02/02/23 05:00 US - OR guided needle placemen Routine Hospital Course (1) Status post left knee replacement: On February 02, [address] [facility] and underwent a left knee replacement without complication. She had a spinal anesthetic. Postoperatively she was started on aspirin for DVT prophylaxis and transferred to the general orthopedic floors. Her hospital course was uneventful. On postop day #1, her vital signs were stable and her pain was well controlled. She was able to participate well with physical therapy doing ambulation and range of motion exercises. She was then discharged home. She will follow-up [facility] in 2 weeks. PG Care Time/CCT Total # of Minutes Spent Total Time Spent with Patient: Total time spent is greater than 50% in coordination of care (as documented) at patient's floor/unit and/or counseling patient: Discharge Plan Discharge Items Patient Disposition: Home - Home Health Services Reason For Visit: POST OP Discharge Diagnosis: Left knee replacement Activity: Per Instructions section Non-emergency contact: Surgeon Call non-emergency contact if: your wound has increased redness and your wound has increased drainage Follow-up/Referrals: Charlotte Muñoz MD [Primary Care Provider] - Diet: Regular Addtl Attending Provider Instructions: Activity and Therapy Recommendations: * If you are using [facility] then therapy will be provided at your home until they feel you have accomplished all of your goals. * If you are using [facility] then Physical Therapy will be provided until they feel you are ready to start Outpatient Physical Therapy. * If you are not using home therapy then Outpatient Physical Therapy should start about 3-5 days from your day of surgery. Therapy will last about 6-10 weeks * It is important not to put a pillow under your knee when you are relaxing or sleeping. It is just as important to make sure you are getting your knee perfectly straight as it is to regain your knee bend. * You were shown a series of exercises in the hospital. Do these exercises three times each day including the exercises you were shown in physical therapy. * Get up and walk several times each day. For the first four weeks, try not to stand or walk for more than one hour at a time. If you do stand or walk for more than one hour, you will not hurt anything, but your leg will likely swell. * As you feel comfortable, you may change from the walker or crutches to a cane and then to independent walking. Medications: * Narcotic You will likely be sent home from the hospital with a prescription for the narcotic pain medication that worked best throughout your stay. * Aspirin Most patients will be required to take Aspirin 81mg twice a day for 6 weeks after surgery. This is obtained [id number] and a prescription is not necessary. * Other medications may be prescribed for specific circumstances. If you have any questions, please call the office at . * Resume previous home medications unless otherwise instructed TEDs/Elastic Stockings: The white elastic stockings help limit swelling and prevent blood clots from forming in your legs.~ The more you wear them, the more they work. Wear them for six weeks. Dressing Care: The dressing can be changed after physical therapy on postop day #1. Daily dry dressing changes for a few days, especially if the incision is still draining some. If the incision is not draining then you may leave the lorne open to air. If there is a little bit of drainage or if the lorne are getting stuck on your clothing then cover the incision with a dry dressing. The lorne will be removed at your 2 week follow-up appointment. Showering: You may shower 5 days from the day of surgery as long as the incision is no longer draining. You may shower with the lorne exposed. Let soapy water run over the lorne and pat them dry. Do not scrub or soak the incision. Things To Watch For: * Drainage from the incision site that occurs more than one week after your surgery. * Increased redness at the incision site. * Fever above 102 degrees Fahrenheit. * Unusual chest pain or shortness of breath. * Call [facility] at with any of the above problems Follow-Up Visit: Follow-up with Dr. Palmer's PA (Maged Whiting) 2-3 weeks after your day of surgery. He will remove your lorne and answer any questions. If you have any additional questions or concerns, Dr Palmer is usually in the office at the same time and will be available An appointment was probably scheduled when you signed-up for surgery in the office. If you have any questions call Office Instructions: More detailed instructions as well as Frequently Asked Questions were provided in a folder by our office when you signed-up for surgery. Please review these instructions when you get home. If you have any further questions or concerns, please feel free to call the office at [phone] Pending Studies at Discharge: No Stand-Alone Forms: My [facility] Medications and DC Order Prescriptions: New oxycodone 5 mg Tablet 5 mg PO Q4H PRN (Reason: pain) Qty: 30 0RF Continued omeprazole 20 mg capsule,delayed release(DR/EC) 20 mg PO PRN PRN (Reason: reflux) coenzyme Q10 [Co Q-10] 100 mg capsule 100 mg PO QAM cholecalciferol (vitamin D3) [Vitamin D3] 125 mcg (5,000 unit) Tablet 125 mcg PO QAM cyanocobalamin (vitamin B-12) 1,000 mcg Capsule 1,000 mcg PO QAM benazepril [Lotensin] 20 mg tablet 20 mg PO HS hydrochlorothiazide 25 mg tablet 25 mg PO QAM rosuvastatin [Crestor] 10 mg tablet 10 mg PO QAM Changed aspirin 81 mg tablet,delayed release (DR/EC) 81 mg PO BID 42 Days Qty: 90 3RF Rx Instructions: pt to start post-op Admission Data Admit Date/Time: 02/02/23 14:03 Attending Provider: Maged Palmer Admit Provider: Maged Palmer Primary Care Provider: Charlotte Muñoz
[2023-02-03] MEDS ORDERED: dexAMETHasone 4 MG TAB PO SCH (08:00)
[2023-02-03] MEDS ORDERED: MULTIVITAMIN TAB PO SCH (09:00)
[2023-02-03] MEDS ORDERED: ROSUVASTATIN CALCIUM 10 MG TAB PO SCH (09:00)
[2023-02-03] MEDS ORDERED: hydroCHLOROthiazide 25 MG TAB PO SCH (09:00)
[2023-02-03] MEDS: ASPIRIN 81 MG ECTAB PO SCH (09:17)
[2023-02-03] MEDS: DOCUSATE SODIUM 100 MG CAP PO SCH (09:20)
== END 2023-02-03 12:19 | disposition home health service (06) ==
LOC: 3E 10:14 → ASU 10:14